=== PATIENT | male | born 1950 | race Caucasian/White ===

== ENCOUNTER → 2016-03-29 | Outpatient (CLI) | payer OTHER, MEDICARE ==
[~2016-03-29] VITALS: Ht 170.2 cm; Wt 96.2 kg
[~2016-03-29] MED LIST: AMIL5TAB15 PO; CHOL1000 PO; CHOL100010 PO; CLON0.252 PO; COLON HEALTH PO; DOXY-300 PO; DOXY100C76 PO; Enteral Nutrition Formula PO; FRS/40 PO; KETO0.5S33 OPR; LACT10SO30 PO; LCTL30 PO; LCTS240 PO; NUTRCAP11 PO; OMEP20CA9 PO; ONDA4TAB46 PO; POLYSOL50 OPR; PRAM1TAB47 PO; PRDFOPS OPR; PRLSR20 PO; RIFA550T2 PO; TRAM-10 PO; ULT50HP PO; ZFRODT4HP PO; ZINC1CAP PO; ZLF/50 PO
[2016-03-29 14:12] VITALS: BP 144/74; PULSE 79; Ht 170.2 cm; Wt 96.2 kg
== END | disposition home or self-care (01) ==
LOC: C.NEUR 12:54
PROVIDERS: ATTEND Internal Medicine Pulmonary Disease
DX: G47.10 Hypersomnia, unspecified (principal); K74.60 Unspecified cirrhosis of liver; B18.2 Chronic viral hepatitis C; F20.9 Schizophrenia, unspecified; G47.00 Insomnia, unspecified; G25.81 Restless legs syndrome

== ENCOUNTER → 2016-03-29 | Outpatient (CLI) | payer OTHER, MEDICARE ==
[2016-03-29 16:54] LABS: BASO % 0.4 %; BASO ABS # 0.03 K/uL (0-0.2); COMPLETE YES; EOS % 5.6 %; HEMATOCRIT 39.8 % (42-52); IG% 0.1 %; LYMPH % 23.7 %; LYMPH ABS # 1.75 K/uL (1.2-3.4); MEAN CELL VOLUME 98.8 fL (80-100); MEAN CORPUSCULAR HEMOGLOBIN 34.5 pg (25-34); MEAN CORPUSCULAR HGB CONC 34.9 g/dl (32-36); MEAN PLATELET VOLUME 11.2 fL (7.4-10.4); MONO % 7.6 %; NEUT % 62.6 %; PLATELET COUNT 117 K/uL (130-400); RED BLOOD COUNT 4.03 M/uL (4.7-6.1); WHITE BLOOD COUNT 7.37 K/uL (4.8-10.8)
[2016-03-29 17:22] LABS: ALT/SGPT 25 U/L (12-78); AST/SGOT 31 U/L (15-37); BLOOD UREA NITROGEN 22 mg/dl (7-18); BUN/CREATININE RATIO 22.2 (10-20); CALCIUM 8.7 mg/dl (8.5-10.1); CARBON DIOXIDE 25 mmol/L (21-32); CHLORIDE 109 mmol/L (98-107); GLUCOSE 107 mg/dl (70-99); POTASSIUM 3.8 mmol/L (3.5-5.1); SODIUM 142 mmol/L (136-145)
[2016-03-29 17:27] LABS: ALB/GLOB RATIO 0.9 (0.9-2); ALKALINE PHOSPHATASE 99 U/L (45-117); FERRITIN 48.9 ng/ml (8.0-388.0)
== END | disposition home or self-care (01) ==
LOC: C.LABBC 15:50
PROVIDERS: ATTEND Internal Medicine Pulmonary Disease
DX: G25.81 Restless legs syndrome (principal)

== ENCOUNTER → 2016-03-30 | Outpatient (CLI) | payer OTHER, MEDICARE | END | disposition home or self-care (01) | LOC: C.LAB 14:06 | PROVIDERS: ATTEND Internal Medicine Pulmonary Disease | DX: G25.81 Restless legs syndrome (principal) ==

== ENCOUNTER → 2016-04-06 | Day surgery (SDC) | payer OTHER, MEDICARE ==
[2016-04-01 11:48] VITALS: Ht 170.2 cm; Wt 95.5 kg
[~2016-04-06] VITALS: Ht 170.2 cm; Wt 95.5 kg
[~2016-04-06] MED LIST changes: -DOXY-300 PO; -KETO0.5S33 OPR; -LCTS240 PO; +LIDOCAINE HCL 2% 2 ML VIAL (20MG/ML) ONE; -POLYSOL50 OPR; -PRDFOPS OPR; +PROPOFOL IV EMULSION 10 MG/ML 20 ML VIAL IV ONE; +SODIUM CHLORIDE 0.9% 500ML 500 ML IV ONE; -ULT50HP PO; -ZFRODT4HP PO
[2016-04-06 12:58] VITALS: TEMP 36.8
--- NOTE | 2016-04-06 13:20 | Endo History and Physical ---
History & Physical Date of Service: Apr 06, 2016. Chief Complaint: hepatic cirrhosis Referring Physician: Dr. Ariel Estrada History of Present Illness cirrhosis, h/o varices Past Medical History Anxiety, Reflux, Liver Disease, Depression Past Surgical History Hx Cardiac Surgery: No Hx Internal Defibrillator: No Hx Pacemaker: No Hx Abdominal Surgery: Yes (HERNIA REPAIR) Hx of Implantable Prosthesis: No Hx Post-Op Nausea and Vomiting: No Hx Cancer Surgery: Yes (SKIN CANCER REMOVAL) Hx Thoracic Surgery: No Hx Orthopedic: No Hx Urinary Tract Surgery: No Family History None Social History Smoking Status: Former Smoker Hx Substance Use: Yes (QUIT 10+ YEARS) Hx Alcohol Use: Yes (QUIT 10+ YEARS) Allergies Coded Allergies: Zolpidem (Verified Adverse Reaction, Intermediate, passes out, 04/01/16) Current Medications Reported Home Medications Medications Dose Route/Sig Max Daily Dose Days Date Category Dose Instructions Zofran (Ondansetron HCl) 4 Mg Tab 4 Mg PO Q8H PRN 04/01/16 Reported Ultram (Tramadol HCl) 50 Mg Tab 50 Mg PO Q6H PRN 04/01/16 Reported [Colon Health] 1 Tab PO QAM 10/22/15 Reported Sertraline HCl 50 Mg Tab 50 Mg PO QAM 10/22/15 Reported Clonazepam Odt (Clonazepam) 0.25 Mg Tab 0.25 Mg PO HS 10/22/15 Reported Xifaxan (Rifaximin) 550 Mg Tab 550 Mg PO BID 10/22/15 Reported Lactulose (Lactulose (Encephalopathy)) 10 Gm/15 Ml Dori 1 Tbs PO BID 10/22/15 Reported Amiloride Hcl 5 Mg Tab 20 Mg PO BID 10/13/14 Reported take four 5mg tablets Lasix (Furosemide) 40 Mg Tab 120 Mg PO BID 10/13/14 Reported Mirapex (Pramipexole Dihydrochloride) 0.5 Mg Tab 1 Mg PO HS 01/28/14 Reported Vitamin D (Cholecalciferol) 1,000 Inter.unit Tab 1,000 Inter.unit PO QAM 10/22/12 Reported Prilosec (Omeprazole) 20 Mg Capcr 40 Mg PO QAM 06/20/12 Reported Prilosec (Omeprazole) 20 Mg Cap 20 Mg PO QPM 04/13/12 Reported takes late afternoon Vital Signs Weight (Kilograms): 95.45 Height (Feet): 5 Height (Inches): 7 Date Time Temp Pulse Resp B/P Pulse Ox O2 Delivery O2 Flow Rate FiO2 04/06/16 12:58 36.8 65 20 143/61 95 Room Air Physical Exam General Appearance: no apparent distress Respiratory/Chest: Respiratory effort: no dyspnea Auscultation: breath sounds normal Cardiovascular: Heart Auscultation: RRR Abdomen: Bowel Sounds: normal Assessment and Plan EGD
--- NOTE | 2016-04-06 13:31 | Discharge Instructions ---
Endoscopy Patient Instructions Date / Procedure(s) Performed Apr 06, 2016. EGD Allergy Information Coded Allergies: Zolpidem (Verified Adverse Reaction, Intermediate, passes out, 04/01/16) Discharge Date / Findings Apr 06, 2016. No esophageal or gastric varices. Portal gastropathy and GAVE Provider Instructions Activity Restrictions - No exercising or heavy lifting for 24 hours. - Do not drink alcohol the day of the procedure. - Do not drive a car or operate machinery until the day after the procedure. - Do not make any important decisions or sign important papers in 24 hours after the procedure. Following Day: - Return to full activity which may include returning to work/school. Diet Start your diet with liquids and light foods (jello, soup, juice, toast). Then eat your usual diet if not nauseated. Treatment For Common After Affects For mild abdominal pain, bloating, or excessive gas: - Rest - Eat lightly - Lie on right side Follow-Up Information Follow-up with Dr. Ariel Estrada as scheduled Anesthesia Information What You Should Know You have had a procedure that required some medicine to reduce anxiety and discomfort. This treatment is called moderate sedation. After receiving the treatment, you may be sleepy, but you will be able to breathe on your own. The effects of the treatment may last for several hours. Follow these instructions along with Activity/Diet recommendations noted above: * Do NOT do anything where dizziness or clumsiness would be dangerous. * Rest quietly at home today, then you can be up and about tomorrow. * Have a responsible person stay with you the rest of today. * You may have had an I.V. today. If so, you may take the dressing off later today. Recommendations Call your doctor if: * Trouble breathing * Continuous vomiting for more than 24 hours * Temperature above 101 degrees * Severe abdominal pain or bloating * Pain not relieved by pain medicine ordered * There is increased drainage or redness from any incision * A large amount of rectal bleeding greater than 2-3 tablespoons. (If you had a polyp/s removed or have hemorrhoids, a small amount of blood - from the rectum is to be expected.) * You have any unanswered questions or concerns. IN THE EVENT OF A SERIOUS EMERGENCY, GO TO THE NEAREST EMERGENCY ROOM Your discharge instructions were prepared by provider Edwardo Dela Cruz. Patient Instructions Signature Page Oskar Bridges Patient (or Guardian) Signature/Date: I have read and understand the instructions given to me by my caregivers. Caregiver/RN/Doctor Signature/Date: The above-named patient and/or guardian has received patient instructions on this date. + Original Patient Signature Page (only) stays with chart. Please make copy for patient.
--- NOTE | 2016-04-06 13:36 | GI REPORT ---
Procedure Date: 04/06/2016 1:12 PM Procedure: Upper GI endoscopy Indications: Cirrhosis rule out esophageal varices Medicines: See the Anesthesia note for documentation of the administered medications Complications: No immediate complications. Estimated Blood Loss: Estimated blood loss: none. Procedure: Pre-Anesthesia Assessment: - ASA Grade Assessment: III - A patient with severe systemic disease. After obtaining informed consent, the endoscope was passed under direct vision. Throughout the procedure, the patient's blood pressure, pulse, and oxygen saturations were monitored continuously. The scope was introduced through the mouth, and advanced to the second part of duodenum. The upper GI endoscopy was accomplished without difficulty. The patient tolerated the procedure well. Findings: There were no esophageal varices. Esophagus was normal. There were no gastric varices. There was marked snakeskin appearance in cardia and body of stomach, suggestive of portal gastropathy. There were stripes of petechiae in the antrum, suggestive of GAVE. The duodenum was normal. Recommendation: - Discharge patient to home. Edwardo Strong M.D. Edwardo Strong MD 04/06/2016 1:36:14 PM This report has been signed electronically. Note Initiated On: 04/06/2016 1:12 PM I attest to the content of the Intraoperative Record and orders documented therein, exceptions below
[2016-04-06 14:03] VITALS: BP 127/58; PULSE 61; O2SAT 96
--- NOTE | 2016-04-06 15:25 | Anesthesiology Progress Note ---
Anesthesia Post Op Note Date & Time Apr 06, 2016 at 15:26 Vital Signs Pain Intensity: 0 Vital Signs Past 12 Hours Date Time Temp Pulse Resp B/P Pulse Ox O2 Delivery O2 Flow Rate FiO2 04/06/16 14:03 61 20 127/58 96 Room Air 04/06/16 13:48 64 20 122/58 93 Room Air 04/06/16 13:33 62 20 114/57 97 Room Air 04/06/16 12:58 36.8 65 20 143/61 95 Room Air Notes Mental Status: alert / awake / arousable, participated in evaluation Pt Amnestic to Procedure: Yes Nausea / Vomiting: adequately controlled Pain: adequately controlled Airway Patency, RR, SpO2: stable & adequate BP & HR: stable & adequate Hydration State: stable & adequate Anesthetic Complications: no major complications apparent
== END | disposition home or self-care (01) ==
LOC: C.GI 11:54
PROVIDERS: ATTEND Internal Medicine Gastroenterology
DX: K74.69 Other cirrhosis of liver (principal); K21.9 Gastro-esophageal reflux disease without esophagitis; F41.9 Anxiety disorder, unspecified; F32.9 Major depressive disorder, single episode, unspecified; Z98.890 Other specified postprocedural states; Z87.891 Personal history of nicotine dependence

== ENCOUNTER → 2016-05-05 | Outpatient (CLI) | payer OTHER, MEDICARE ==
[~2016-05-05] MED LIST changes: -LIDOCAINE HCL 2% 2 ML VIAL (20MG/ML) ONE; -PROPOFOL IV EMULSION 10 MG/ML 20 ML VIAL IV ONE; -SODIUM CHLORIDE 0.9% 500ML 500 ML IV ONE
--- NOTE | 2016-05-06 04:10 | PAP/PSG TECHNICIAN REPORT ---
[facility] Food Technician Polysomnogram Report Study name: None Report date: 05/06/2016 Study date: 05/05/2016 Referring Physician: Garth Jaramillo M.D. Name: ANNA PIO Nikhil Interpreting Physician: Garth Jaramillo M.D. Date of : 1950 Food Technician: Rhiannon Cortes RPSGT. Sex: Male Age: 66 StudyType: PSG Weight: 212 lbs Height: 66 years, Height 5' 0" Neck Circum:15inches BMI: 41.4 Medications: Amoloride HCl 5mg, Clonazepam 0.25mg, Furosemide 40mg, Lactulose 10gm/15ml, Mirapex, Omeprazole 20mg, Tramadol HCl 50mg, Vit D, Xifaxan 550mg, Zofran 4mg, Zoloft 50mg Patient History Study started on room air with no ETCO2 monitoring in room #6. 66 yr old male here tonight for a diagnostic psg. He complains of hypersomnolence and abnormal sleep. He has RLS. He does not know if he snores. Neck circ=15inches. Parameters Monitored NPSG: E1-M2, E2-M1, Fp1-M2, Fp2-M1, F3-M2, F4-M2, F4-M1, C3-M2, C4-M2, C4-M1, O1-M2, O2-M2, O2-M1, T3-M2, T4-M1, P3-M2, P4-M1, CHIN1, CHIN2, HR, EKG, Legs, PFLOW, SNOR, FLOW, CFLOW, Tidal Volume, THOR, ABDO, SpO2, PLTH, CPRESS, ETCO2 Wave, ETCO2, pH Sleep Architecture Sleep Stages Time at Lights Off 9:28:23 PM STAGES Time (min.) TST (%) Time at Lights On 3:50:53 AM Wake 89.5 -- Total Recording Time (TRT) 382.50 min. N1 9.5 3 Total Sleep Period (TSP) 315.0 min. N2 178.5 61 Total Sleep Time (TST) 293.0min. N3 64.5 22 Awake Time 89.5 min. REM 40.5 14 Wake after Sleep Onset 86.5 min. Sleep Efficiency (SE) 77 % Sleep Onset Latency (BERTHA) 3.0 min. Number of Stage 1 Shifts None Awakenings 11 Stage Changes 50 Number of REM periods 2 REM 40.5 14 REM Latency 162.0 min. NREM 252.5 86 Body Position Analysis Supine Right Left Side Prone Vertical Total Sleep Time (min.) 117.7 192.0 0.0 192.00 0.0 0.0 Total Sleep Time (%) 34% 66% 0% 66 0% N/A% Total Sleep Time REM (min.) 0.0 40.5 0.0 None 0.0 0.0 Total Sleep Time NREM (min.) 101.0 151.5 0.0 None 0.0 0.0 Intermittent Wake (min.) 16.7 10.2 62.6 None 0.0 0.0 Total Sleep Period (%) 36% None None None None None Arousals Myoclonus (PLM) * Events Count Index Events Count Index Spontaneous 4 1 Events Awake (PLMW) 86 57.7 Respiratory 1 0.2 Events Asleep w/ Arousal (PLMA) 25 5.1 PLM 24 5 Events Asleep w/o Arousal (PLMS) 267 54.7 Snoring 2 0 Total Asleep 292 59.8 Total 31 6 Total 378 59 Respiratory Analysis * CA OA MA CH H RERA Total Count 0 0 0 0 2 0 2 Index 0.0 0.0 0.0 0 0.4 0 0.4 Mean Duration 0.0 0.0 0.0 0.00 13.5 0.0 13.5 Longest Duration 0.0 0.0 0.0 0.00 0.0 0.0 17.0 Respiratory Event Summary Total Supine ~Supine Right Left Prone REM NREM Apneas Count 0 0 0 0 N/A N/A 0 0 Index 0.0 0 0 0.0 N/A N/A 0 0 Hypopneas (4% Desat) Count 2 2 0 0 N/A N/A 0 2 Index 0.4 1.2 0 0.0 N/A N/A 0.0 0.5 Apneas & All Hypopneas Count 2 2 0 0 N/A N/A 0 2 Index 0.4 1 0 0 N/A N/A 0.0 0.5 Respiratory Events (Semiconductor Dies Loader+All Hyp+RERA) Count 2 2 0 0 N/A N/A 0 2 Index 0.4 1 0 0.0 N/A N/A 0.0 0.5 Respiratory Related Arousal Count 1 2 0 0 N/A N/A 0 1 Index 0.2 1 0 0 N/A N/A 0 0 Snoring Analysis Supine Right Left Prone REM NREM Total Snore duration 13.2 min Snores count 207 640 N/A N/A 148 699 847 Snore mean duration 0.9 Sec Snores index 123 200 N/A N/A 219.3 166.1 173.4 TST with snoring (%) 4.5% Desaturation Event Summary: Minimum %SpO2 Event Count Mean/Min/Max Duration(sec.) Desaturation Index % Time In Bed > 90 15 24.3 / 9.5 / 49.8 65.8 4.3 86 - 90 21 25.2 / 11.5 / 60.0 4.7 82.9 81 - 85 1 33.0 / 33.0 / 33.0 1.5 12.8 76 - 80 0 N/A 0.0 0.1 71 - 75 0 N/A 0.0 0.0 66 - 70 0 N/A 0.0 0.0 61 - 65 0 N/A 0.0 0.0 56 - 60 0 N/A 0.0 0.0 51 - 55 0 N/A 0.0 0.0 < 50 0 N/A 0.0 0.0 Total REM NREM Awake <50% 0.0 min. 0.0 min. 0.0 min. 0.0 min. 51 - 60% 0.0 min. 0.0 min. 0.0 min. 0.0 min. 61 - 70% 0.0 min. 0.0 min. 0.0 min. 0.0 min. 71 - 80% 0.2 min. 0.0 min. 0.2 min. 0.0 min. 81 - 90% 306.7 min. 40.4 min. 238.7 min. 27.5 min. 91 - 100% 13.7 min. 0.0 min. 5.8 min. 7.8 min. Average 87 87 87 89 Minimum SpO2 79 85 79 81 Desaturation Event Index 4.4 0.0 3.6 8.7 # Desat. Events below 89% 24 N/A 15 9 Time(%) with Saturation below 89% 76.4 10.3 61.9 4.2 Time(min.) with Saturation below 89% 244.9 32.9 198.4 13.6 Time (mins) REM (mins) NREM (mins) % of TST SpO2 Below 90% 15 N/A N15 94.8 SpO2 Below 88% 7 0 0 53 Heart Rate Analysis Min (bpm) Max (bpm) Average (bpm) Awake 50 107 67 NREM 33 281 59 REM 48 65 54 Overall 33 281 58 Supplemental O2 Values Minimum O2 level: None Value Start Time End Time Food Technician Comments Mr. Bridges slept in the right, left and supine positions. No cardiac arrhythmia noted. PLM's were noted. No bruxism noted. Snoring was noted and scored as a 3 on a scale of 1 through 5. (0=no snoring, 5=snoring loud enough to be heard through a closed door or down the childers way) He awoke to use the restroom once during the night. He stated that he slept about the same as usual. 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 Mr. Bridges awoke early and could not get back to sleep and asked to leave. He was having back pain. The final report will be interpreted and signed by a sleep physician. The completed physician report will then be placed in the patient medical record. Therapy (cm H2O) 0 TIB (min.) 382.5 TST (min.) 293.0 Sleep Onset (min.) 3.0 REM Onset From Sleep (min.) 162.0 Sleep Efficiency % 77 Wakefulness (%) 23 Wakefulness (min.) 89.5 NREM 1 (%) 3 NREM 1 (min.) 9.5 NREM 2 (%) 61 NREM 2 (min.) 178.5 NREM 3 (%) 22 NREM 3 (min.) 64.5 REM (%) 14 REM (min.) 40.5 # Arousals 31 Arousal Index 6 # Snore 847 Snore Index 173.4 AHI 0.4 AHI Supine 1 AHI Non-Supine 0 NREM AHI 0.5 REM AHI 0.0 RDI 0.4 # Obstructive Apnea 0 # Central Apnea 0 # Mixed Apnea 0 # Hypopneas 2 RERAs 0 Total Respiratory Events 9 Time Below SpO2 89% (min.) 231.3 Mean NREM SpO2 (%) 87 Mean REM SpO2 (%) 87 Mean Sleep SpO2 (%) 87 Min NREM SpO2 (%) 79 Min REM SpO2 (%) 85 Position Supine (min.) 117.7 Position Non-supine (min.) 192.0 LM Index Sleep 59.8 LM Index NREM 68.0 LM Index REM 8.9 Mean Heart Rate (bpm) 58 Min Heart Rate (bpm) 33
--- NOTE | 2016-05-09 07:12 | POLYSOMNOGRAPH REPORT ---
CLINICAL DATA: A 66-year-old male with BMI of 41.4, referred by Dr. Ariel Estrada for evaluation of hypersomnolence and abnormal sleep. He has restless leg syndrome symptoms in the evening. He does not know if he snores. SLEEP ARCHITECTURE: Total sleep period was 315 minutes. Total sleep time was 293 minutes, divided between 252.5 minutes of non-REM sleep and 40.5 minutes of REM sleep. Sleep onset latency was 3 minutes. REM latency was slightly delayed at 162 minutes. Sleep efficiency was 77%. Wake after sleep onset was 86.5 minutes. Sleep consisted of stage N1 3%, N2 61%, N3 22% and REM 14%. AROUSAL DATA: 31 arousals were recorded for an index of 6 per hour. PLM DATA: Severely elevated limb movements during sleep were noted. There were 292 limb movements during sleep noted for an index of 59.8 per hour with arousal index of 5.1 per hour. RESPIRATORY DATA: There was no evidence of clinically significant sleep apnea/hypopnea noted. The AHI was 0.4. There were 2 hypopneic episodes. The mean duration of hypopnea was 13.5 seconds. OXIMETRY DATA: Nocturnal hypoxemia was seen. Oxygen emanuel was 79% during non-REM sleep. Mean saturation was 87%. EKG: Heart rates ranged from 40-65 beats per minute. No arrhythmias were noted. SWEATBAND PERFORATOR'S COMMENTS: The patient slept in the right, left, and supine positions. Snoring was moderate, rated 3 on a scale of 1 through 5. He did awaken early and did not sleep because of back pain. IMPRESSION: 1. No evidence of clinically significant sleep apnea. 2. Nocturnal hypoxemia was seen. 3. Significant limb movements during sleep consistent with periodic limb movement disorder. RECOMMENDATIONS: The patient may benefit from use of nocturnal oxygen and treatment of PLMD. Clinical correlation is needed. [facility]
--- NOTE | 2016-05-13 12:04 | CODING QUERY MEDICAL NECESSITY ---
CQSUPPORTING DIAGNOSIS NEEDED A supporting diagnosis is required for the test/procedure performed on this patient in order for us to be reimbursed by the patient's insurance. Please provide a supporting diagnosis for the following test/procedure listed below next to the test name along with your signature. *If there is no additional diagnosis for this patient that would support the following test/procedure please document that below next to the test/procedure. Test(s)/Procedure(s) that require a supporting diagnosis: DOS 05/05/16 SLEEP STUDY IF NOTHING ELSE TO ADD PLEASE SAY THAT AND SIGN THANKS FOR YOUR PATIENCE Provider Signature: Date: Thank you Linnea Dumont Health Information Management Once completed, please kindly fax back to [phone] For questions please call [phone]
== END | disposition home or self-care (01) ==
LOC: C.NEUR 20:00
PROVIDERS: ATTEND Internal Medicine Pulmonary Disease
DX: G47.10 Hypersomnia, unspecified (principal); G25.81 Restless legs syndrome; F20.9 Schizophrenia, unspecified; B18.2 Chronic viral hepatitis C; G47.00 Insomnia, unspecified; G47.36 Sleep related hypoventilation in conditions classified elsewhere; R06.83 Snoring

== ENCOUNTER → 2016-05-17 | Outpatient (CLI) | payer OTHER, MEDICARE ==
[~2016-05-17] VITALS: Ht 170.2 cm; Wt 103.8 kg
[2016-05-17 14:05] VITALS: BP 148/73; PULSE 74; Ht 170.2 cm; Wt 103.8 kg
== END | disposition home or self-care (01) ==
LOC: C.NEUR 13:16
PROVIDERS: ATTEND Internal Medicine Pulmonary Disease
DX: G47.34 Idiopathic sleep related nonobstructive alveolar hypoventilation (principal); E72.20 Disorder of urea cycle metabolism, unspecified; K74.60 Unspecified cirrhosis of liver; I89.0 Lymphedema, not elsewhere classified

== ENCOUNTER 2016-06-04 03:20 | Emergency (ER) | payer OTHER, MEDICARE ==
[~2016-06-04] VITALS: Ht 170.2 cm; Wt 102.6 kg
[~2016-06-04 03:20] MED LIST changes: -CHOL1000 PO; -DOXY100C76 PO; -Enteral Nutrition Formula PO; -LCTL30 PO; -NUTRCAP11 PO; -ZINC1CAP PO
[2016-06-04 03:34] VITALS: TEMP 37.1; Ht 170.2 cm; Wt 102.6 kg
--- NOTE | 2016-06-04 04:32 | EMERGENCY ROOM VISIT NOTE ---
History Report prepared by Vonnie: Huang Le Under the Supervision of: Dr. Sherin Davis D.O. First contact with patient: 03:43 Chief Complaint: ARM PAIN Stated Complaint: ARM PAIN History of Present Illness The patient is a 66 year old male who presents to the Emergency Room with complaints of persistent left arm pain that started at approximately 0200. The arm pain is rated 9/10 in severity. He also notes swelling. The patient injuries his left elbow often. The patient has had lesions over his bilateral arms that he periodically gets frozen. He last had them frozen 2 months ago. The patient denies fevers, chills, nausea, or vomiting. The patient has a history of hepatitis C, arthritis, and lymphedema. Source of History: patient Onset: 0200 this morning Position: arm (left) Symptom Intensity: 9/10 Timing: other (persistent) Associated Symptoms: No chills, No fevers, No nausea, No vomiting Review of Systems See HPI for pertinent positives & negatives. A total of 10 systems reviewed and were otherwise negative. Past Medical & Surgical Medical Problems: (1) Anemia (2) Cellulitis (3) Chronic hepatitis C (4) Cirrhosis of liver (5) Esophageal varices (6) Hernia repair (7) History of - schizophrenia (8) Mtakl-Fowuzqkop-Uueyt pattern Family History Cancer Heart disease Hypertension Lung disease Seizures Social History Smoking Status: Never Smoker Alcohol Use: none Drug Use: none Marital Status: Housing Status: lives alone Occupation Status: disabled Current/Historical Medications Scheduled Amiloride Hcl (Amiloride Hcl), 20 MG PO BID Cholecalciferol (Vitamin D3), 1,000 UNIT PO DAILY Clonazepam (Clonazepam Odt), 0.25 MG PO HS Doxycycline Monohydrate (Monodox), 100 MG PO BID Furosemide (Lasix), 80 MG PO BID Lactulose (Encephalopathy) (Lactulose), 1 TBS PO BID Nutritional Supplements (Colon Formula), 1 CAP PO DAILY Omeprazole (Prilosec), 20 MG PO QPM Omeprazole (Prilosec), 40 MG PO QAM Pramipexole Dihydrochloride (Mirapex), 1 MG PO HS Rifaximin (Xifaxan), 550 MG PO BID Sertraline HCl (Sertraline HCl), 50 MG PO QAM Zinc Sulfate (Zinc Sulfate), 220 MG PO DAILY Scheduled PRN Ondansetron Hcl (Zofran), 4 MG PO Q8H PRN for Nausea Tramadol (Ultram), 50 MG PO Q6H PRN for Pain Allergies Coded Allergies: Zolpidem (Verified Adverse Reaction, Intermediate, passes out, 06/04/16) Physical Exam Vital Signs Date Time Temp Pulse Resp B/P Pulse Ox O2 Delivery O2 Flow Rate FiO2 06/04/16 05:35 87 18 126/47 95 Room Air 06/04/16 03:34 37.1 80 18 165/71 96 Room Air Physical Exam HEENT: Head - normocephalic and atraumatic Pupils are equal, round, and reactive to light. Extraocular eye muscles are intact, and sclera are anicteric. Nose - moist nasal mucosa without discharge. Mouth - moist buccal mucosa. Oropharynx is nonerythematous and there is no tonsillar exudate or edema noted. Neck: Supple; no JVD, nuchal rigidity, cervical lymphadenopathy. Heart: Regular rate and rhythm. There is a normal S1 and S2 with no murmurs, clicks, or gallops appreciated. Lungs: Clear to auscultation bilaterally with no wheezes, rales, or rhonchi. Abdomen: Soft, completely nontender, nondistended, with good bowel sounds. There are no palpable pulsatile masses or hepatosplenomegaly. There is no guarding, rigidity, or rebound noted. Extremities: Left elbow has two scabbed-over areas with surrounding erythema, extension of erythema and warmth over the dorsal aspect of the forearm consistent with cellulitis. Moderate edema of the bilateral lower extremities which he says is baseline. There are easily palpable peripheral pulses. Skin: warm and dry with good turgor and no rashes. Medical Decision & Procedures Laboratory Results 06/04/16 04:40 Red Blood Count 3.69, Mean Corpuscular Volume 96.7, Mean Corpuscular Hemoglobin 33.9, Mean Corpuscular Hemoglobin Concent 35.0, Mean Platelet Volume 10.6, Neutrophils (%) (Auto) 64.1, Lymphocytes (%) (Auto) 18.8, Monocytes (%) (Auto) 10.9, Eosinophils (%) (Auto) 5.4, Basophils (%) (Auto) 0.4, Neutrophils # (Auto ) 4.54, Lymphocytes # (Auto) 1.33, Monocytes # (Auto) 0.77, Eosinophils # (Auto ) 0.38, Basophils # (Auto) 0.03 Test 06/04/16 04:40 White Blood Count 7.08 K/uL (4.8-10.8) Red Blood Count 3.69 M/uL (4.7-6.1) Hemoglobin 12.5 g/dL (14.0-18.0) Hematocrit 35.7 % (42-52) Mean Corpuscular Volume 96.7 fL (80-100) Mean Corpuscular Hemoglobin 33.9 pg (25-34) Mean Corpuscular Hemoglobin Concent 35.0 g/dl (32-36) Platelet Count 106 K/uL (130-400) Mean Platelet Volume 10.6 fL (7.4-10.4) Neutrophils (%) (Auto) 64.1 % Lymphocytes (%) (Auto) 18.8 % Monocytes (%) (Auto) 10.9 % Eosinophils (%) (Auto) 5.4 % Basophils (%) (Auto) 0.4 % Neutrophils # (Auto) 4.54 K/uL (1.4-6.5) Lymphocytes # (Auto) 1.33 K/uL (1.2-3.4) Monocytes # (Auto) 0.77 K/uL (0.11-0.59) Eosinophils # (Auto) 0.38 K/uL (0-0.5) Basophils # (Auto) 0.03 K/uL (0-0.2) RDW Standard Deviation 54.8 fL (36.4-46.3) RDW Coefficient of Variation 15.5 % (11.5-14.5) Immature Granulocyte % (Auto) 0.4 % Immature Granulocyte # (Auto) 0.03 K/uL (0.00-0.02) Laboratory results per my review. Medications Administered Medications (Trade) Dose Ordered Sig/Arline Route Start Time Stop Time Status Last Admin Dose Admin Lorazepam (Ativan Inj) 1 mg NOW STAT IV 06/04/16 04:59 06/04/16 05:00 DC 06/04/16 05:11 1 MG Doxycycline Hyclate (Vibramycin Cap) 100 mg ONE ONCE PO 06/04/16 05:45 06/04/16 05:46 DC 06/04/16 05:46 100 MG Procedure Medications administered include Ativan IV and Vibramycin PO. ED Course 0340: Patient was evaluated by the resident, Dr. Trip Guerrero. 0425: Past medical records reviewed. The patient was evaluated in room A3. A complete history and physical exam was performed. An IV lock was initiated and labs are drones above. 0455: The patient is feeling anxious. 0459: Ativan 1 mg IV. 0540: The patient was discharged by Dr. Guerrero. 0545: Vibramycin 100 mg PO. Medical Decision The patient is a 66 year old male who presents to the ED with left arm pain. Differential diagnosis includes wound infection, cellulitis, bursitis. Laboratory interpretation: normal white count, hemoglobin 12.5, platelet count 106. The patient presents to the emergency room with left arm discomfort and redness to the elbow. Because of the expanding erythema, his symptoms seemed consistent with an acute cellulitis. The patient has had previous episodes of cellulitis and was successfully treated with doxycycline. We will try that again. Impression Primary Impression: Cellulitis of left forearm Scribe Attestation The scribe's documentation has been prepared under my direction and personally reviewed by me in its entirety. I confirm that the note above accurately reflects all work, treatment, procedures, and medical decision making performed by me. Departure Information Dispostion Home / Self-Care Prescriptions Doxycycline Monohydrate (Monodox) 100 Mg Cap 100 MG PO BID for 14 Days, #28 CAP Prov: Trip Guerrero .MD 06/04/16 Referrals Ariel Estrada M.D. (PCP) Forms HOME CARE DOCUMENTATION FORM, IMPORTANT VISIT INFORMATION Patient Instructions Cellulitis - [facility], [facility]
[2016-06-04] MEDS ORDERED: CHOL1000 PO (04:37)
[2016-06-04] MEDS ORDERED: ZINC1CAP PO (04:38)
[2016-06-04] MEDS ORDERED: NUTRCAP11 PO (04:38)
[2016-06-04 04:54] LABS: BASO % 0.4 %; BASO ABS # 0.03 K/uL (0-0.2); COMPLETE YES; EOS % 5.4 %; HEMATOCRIT 35.7 % (42-52); IG% 0.4 %; LYMPH % 18.8 %; LYMPH ABS # 1.33 K/uL (1.2-3.4); MEAN CELL VOLUME 96.7 fL (80-100); MEAN CORPUSCULAR HEMOGLOBIN 33.9 pg (25-34); MEAN PLATELET VOLUME 10.6 fL (7.4-10.4); MONO % 10.9 %; NEUT % 64.1 %; PLATELET COUNT 106 K/uL (130-400); RED BLOOD COUNT 3.69 M/uL (4.7-6.1); WHITE BLOOD COUNT 7.08 K/uL (4.8-10.8)
[2016-06-04] MEDS ORDERED: LORAZEPAM 2 MG/ML 1 ML VIAL IV STA (04:59)
[2016-06-04 05:35] VITALS: BP 126/47; PULSE 87; O2SAT 95
[2016-06-04] MEDS ORDERED: DOXY100C76 PO (05:43)
[2016-06-04] MEDS ORDERED: DOXYCYCLINE HYCLATE 100 MG CAP PO ONE (05:45)
--- NOTE | 2016-06-04 08:15 | EMERGENCY ROOM VISIT NOTE ---
History First contact with patient: 03:40 Chief Complaint: ARM PAIN Stated Complaint: ARM PAIN History of Present Illness The patient is a 66 year old male who presents to the Emergency Room with complaints of pain, swelling distal to the Left elbow. Patient has his of keratosis involving cass hands and arms and is given freezing treatment monthly. Additionally patient reports repeated injury to Left elbow on the arms of his chair at home which has broken the skin in the past. Patient reports acute swelling distal to the left elbow for several hrs prior to arrival. Pain was described as burning sensation. Patient has been treated in ED before for LE cellulitis with Doxycycline. He denies numbness, weakness, or tingling. Pt denies headache, fevers, chest pain, shortness of breath, nausea, vomiting, diarrhea, pain with urination, and melena. Review of Systems See HPI for pertinent positives & negatives. A total of 10 systems reviewed and were otherwise negative. Past Medical/Surgical History Medical Problems: (1) Anemia (2) Cellulitis (3) Chronic hepatitis C (4) Cirrhosis of liver (5) Esophageal varices (6) Hernia repair (7) History of - schizophrenia (8) Rsfnn-Tuwayoyfw-Cwwze pattern Family History Cancer Heart disease Hypertension Lung disease Seizures Social History Smoking Status: Never Smoker Alcohol Use: none Drug Use: none Marital Status: Housing Status: lives alone Occupation Status: disabled Current/Historical Medications Scheduled Amiloride Hcl (Amiloride Hcl), 20 MG PO BID Cholecalciferol (Vitamin D3), 1,000 UNIT PO DAILY Clonazepam (Clonazepam Odt), 0.25 MG PO HS Doxycycline Monohydrate (Monodox), 100 MG PO BID Furosemide (Lasix), 80 MG PO BID Lactulose (Encephalopathy) (Lactulose), 1 TBS PO BID Nutritional Supplements (Colon Formula), 1 CAP PO DAILY Omeprazole (Prilosec), 20 MG PO QPM Omeprazole (Prilosec), 40 MG PO QAM Pramipexole Dihydrochloride (Mirapex), 1 MG PO HS Rifaximin (Xifaxan), 550 MG PO BID Sertraline HCl (Sertraline HCl), 50 MG PO QAM Zinc Sulfate (Zinc Sulfate), 220 MG PO DAILY Scheduled PRN Ondansetron Hcl (Zofran), 4 MG PO Q8H PRN for Nausea Tramadol (Ultram), 50 MG PO Q6H PRN for Pain Allergies Coded Allergies: Zolpidem (Verified Adverse Reaction, Intermediate, passes out, 06/04/16) Physical Exam Vital Signs Date Time Temp Pulse Resp B/P Pulse Ox O2 Delivery O2 Flow Rate FiO2 06/04/16 05:35 87 18 126/47 95 Room Air 06/04/16 03:34 37.1 80 18 165/71 96 Room Air Physical Exam GENERAL: alert, well appearing, well nourished, no distress, non-toxic EYE EXAM: normal conjunctiva, PERRL and EOM's grossly intact NECK: supple, no nuchal rigidity, no adenopathy, non-tender LUNGS: Clear to auscultation. Normal chest wall mechanics HEART: no murmurs, S1 normal and S2 normal ABDOMEN: abdomen soft, non-tender, normo-active bowel sounds, no masses, no rebound or guarding. SKIN: no rashes and no bruising UPPER EXTREMITIES: Proximal forearm, area of demarcated erythema, swelling, warm to touch, Cass hands/forearms, firm nodular lesion with surrounding mild erythema, LOWER EXTREMITIES: No pitting edema. NEURO EXAM: Normal sensorium, cranial nerves II-XII grossly intact, normal speech, no gross weakness of arms, no gross weakness of legs. Medical Decision & Procedures Laboratory Results 06/04/16 04:40 Red Blood Count 3.69, Mean Corpuscular Volume 96.7, Mean Corpuscular Hemoglobin 33.9, Mean Corpuscular Hemoglobin Concent 35.0, Mean Platelet Volume 10.6, Neutrophils (%) (Auto) 64.1, Lymphocytes (%) (Auto) 18.8, Monocytes (%) (Auto) 10.9, Eosinophils (%) (Auto) 5.4, Basophils (%) (Auto) 0.4, Neutrophils # (Auto ) 4.54, Lymphocytes # (Auto) 1.33, Monocytes # (Auto) 0.77, Eosinophils # (Auto ) 0.38, Basophils # (Auto) 0.03 Test 06/04/16 04:40 White Blood Count 7.08 K/uL (4.8-10.8) Red Blood Count 3.69 M/uL (4.7-6.1) Hemoglobin 12.5 g/dL (14.0-18.0) Hematocrit 35.7 % (42-52) Mean Corpuscular Volume 96.7 fL (80-100) Mean Corpuscular Hemoglobin 33.9 pg (25-34) Mean Corpuscular Hemoglobin Concent 35.0 g/dl (32-36) Platelet Count 106 K/uL (130-400) Mean Platelet Volume 10.6 fL (7.4-10.4) Neutrophils (%) (Auto) 64.1 % Lymphocytes (%) (Auto) 18.8 % Monocytes (%) (Auto) 10.9 % Eosinophils (%) (Auto) 5.4 % Basophils (%) (Auto) 0.4 % Neutrophils # (Auto) 4.54 K/uL (1.4-6.5) Lymphocytes # (Auto) 1.33 K/uL (1.2-3.4) Monocytes # (Auto) 0.77 K/uL (0.11-0.59) Eosinophils # (Auto) 0.38 K/uL (0-0.5) Basophils # (Auto) 0.03 K/uL (0-0.2) RDW Standard Deviation 54.8 fL (36.4-46.3) RDW Coefficient of Variation 15.5 % (11.5-14.5) Immature Granulocyte % (Auto) 0.4 % Immature Granulocyte # (Auto) 0.03 K/uL (0.00-0.02) Medications Administered Medications (Trade) Dose Ordered Sig/Arline Route Start Time Stop Time Status Last Admin Dose Admin Lorazepam (Ativan Inj) 1 mg NOW STAT IV 06/04/16 04:59 06/04/16 05:00 DC 06/04/16 05:11 1 MG Doxycycline Hyclate (Vibramycin Cap) 100 mg ONE ONCE PO 06/04/16 05:45 06/04/16 05:46 DC 06/04/16 05:46 100 MG Medical Decision Differential diagnosis includes etiologies such as cellulitis, abscess, MRSA infection, DVT, necrotizing fasciitis, dermatitis, drug eruption, as well as others were entertained. 66 yo M p/w Left UE pain erythema, swelling distal to olecranon. consistent with cellulitis. Source of infection likely through previous keratosis lesion vs. injury Rt arm Cellulitis -Given dose of Doxycycline 100 mg PO -Sent home on Doxycycline 100 mg PO BID x 14 d Upon reevaluation, the patient is comfortable. I discussed the findings and the treatment plan with the patient. He verbalizes agreement and understanding. He was discharged home with followup to PCP. Impression Primary Impression: Cellulitis of left forearm Departure Information Prescriptions Doxycycline Monohydrate (Monodox) 100 Mg Cap 100 MG PO BID for 14 Days, #28 CAP Prov: Trip Guerrero MD 06/04/16 Referrals Ariel Estrada M.D. (PCP) Patient Instructions My [facility] Resident Tracking Resident Involvement: Resident Care Provided Care Provided: Adult ED
[2016-06-08] MEDS ORDERED: Enteral Nutrition Formula PO (15:39)
[2016-06-08] MEDS ORDERED: LCTL30 PO (15:39)
[2016-06-08] MEDS ORDERED: FRS/40 PO (15:39)
[2016-06-08] MEDS ORDERED: DOXY100C76 PO (15:39)
[2016-06-08] MEDS ORDERED: CLON0.252 PO (15:53)
== END 2016-06-04 05:50 | disposition home or self-care (01) ==
LOC: C.EDB 03:21 → C.EDA 05:50
DX: L03.114 Cellulitis of left upper limb (principal); B19.20 Unspecified viral hepatitis C without hepatic coma; D64.9 Anemia, unspecified; K74.60 Unspecified cirrhosis of liver; I85.00 Esophageal varices without bleeding; F20.9 Schizophrenia, unspecified; I45.6 Pre-excitation syndrome; Z86.19 Personal history of other infectious and parasitic diseases; Z79.899 Other long term (current) drug therapy; Z88.8 Allergy status to other drugs, medicaments and biological substances; Z80.9 Family history of malignant neoplasm, unspecified; Z82.49 Family history of ischemic heart disease and other diseases of the circulatory system; Z82.0 Family history of epilepsy and other diseases of the nervous system

== ENCOUNTER 2016-06-04 15:27 | Inpatient (IN) | payer OTHER, MEDICARE ==
[~2016-06-04] VITALS: Ht 170.2 cm; Wt 98.8 kg
[~2016-06-04 15:27] MED LIST changes: +CHOL1000 PO; +DOXY100C76 PO; +NUTRCAP11 PO; +ZINC1CAP PO
[2016-06-04 17:04] LABS: INR 1.1 (0.9-1.1); PROTHROMBIN TIME (PATIENT) 11.5 SECONDS (9.0-12.0)
--- NOTE | 2016-06-04 17:11 | EMERGENCY ROOM VISIT NOTE ---
History First contact with patient: 15:37 Chief Complaint: SHORTNESS OF BREATH Stated Complaint: SOB Nursing Triage Summary: Pt arrives to ER via BLS with c/o shortness of breath following multiple falls after DC from ER this AM. Pt reports no LOC and that he has "poor balance." Pt also c/o R rib pain upon palpation. Pts lungs have expiratory wheezes on R side , diminished in the L. History of Present Illness The patient is a 66 year old male who presents to the Emergency Department via EMS for evaluation of pain to the RIGHT-sided ribs. He reports that he was seen in this facility earlier this morning for a cellulitis to the LEFT elbow. He was placed on doxycycline which she has had for cellulitis in the past which has worked well. He also received a dose of IV Ativan for anxiety. He was taken home by his sister. Upon returning home, he reports that he attempted to use the restroom. He reports that he lost his balance which is not usual for him, causing him to fall against the toilet. After giving himself from the ground, he reports that he fell a second time and struck his RIGHT sided ribs on the tub. He reportedly laid on the ground for approximately 6 hours as he reports that he was in too much pain to move. His sister did eventually contact him and then contacted EMS. He complains of pain to the RIGHT-sided ribs. He denies any prefall headaches, dizziness, lightheadedness, chest pain, palpitations, or shortness of breath. He reports that balance issues is "typical" for him. The patient rates his current discomfort as an 8/10. He denies any headaches, dizziness, lightheadedness, slurred speech, facial droop, unilateral weakness/numbness, LEFT sided chest pain, palpitations, shortness of breath, nausea, vomiting, abdominal pain, back pain, or extremity pain. Review of Systems A complete 10-point Review of Systems was discussed with the patient, with pertinent positives and negatives listed in the History of Present Illness. All remaining Review of Systems questions can be considered negative unless otherwise specified. Past Medical/Surgical History Medical Problems: (1) Anemia (2) Cellulitis (3) Chronic hepatitis C (4) Cirrhosis of liver (5) ENCEPHALOPATHY, UNSPECIFIED (6) Esophageal varices (7) Hernia repair (8) History of - schizophrenia (9) Gunuf-Jvhwvzmbt-Jxitq pattern Family History Cancer Heart disease Hypertension Lung disease Seizures Social History Smoking Status: Former Smoker Alcohol Use: none Drug Use: none Marital Status: Housing Status: lives alone Occupation Status: disabled Current/Historical Medications Scheduled Amiloride Hcl (Amiloride Hcl), 20 MG PO BID Cholecalciferol (Vitamin D3), 1,000 UNIT PO DAILY Clonazepam (Clonazepam Odt), 0.25 MG PO HS Doxycycline Monohydrate (Monodox), 100 MG PO BID Furosemide (Lasix), 80 MG PO BID Lactulose (Encephalopathy) (Lactulose), 1 TBS PO BID Nutritional Supplements (Colon Formula), 1 CAP PO DAILY Omeprazole (Prilosec), 20 MG PO QPM Omeprazole (Prilosec), 40 MG PO QAM Pramipexole Dihydrochloride (Mirapex), 1 MG PO HS Rifaximin (Xifaxan), 550 MG PO BID Sertraline HCl (Sertraline HCl), 50 MG PO QAM Zinc Sulfate (Zinc Sulfate), 220 MG PO DAILY Scheduled PRN Ondansetron Hcl (Zofran), 4 MG PO Q8H PRN for Nausea Tramadol (Ultram), 50 MG PO Q6H PRN for Pain Allergies Coded Allergies: Zolpidem (Verified Adverse Reaction, Intermediate, passes out, 06/04/16) Physical Exam Vital Signs Date Time Temp Pulse Resp B/P Pulse Ox O2 Delivery O2 Flow Rate FiO2 06/04/16 18:30 68 18 136/60 91 Room Air 06/04/16 17:40 69 17 155/74 94 Room Air 06/04/16 17:32 71 134/57 77 142/62 78 153/83 81 06/04/16 16:11 78 06/04/16 15:40 36.9 73 23 147/69 95 Room Air 06/04/16 15:40 95 Nasal Cannula 06/04/16 15:40 95 Room Air Pain Rating (0-10): 8 Physical Exam VITAL SIGNS - Vital signs and nursing notes were reviewed. GENERAL - 66-year-old male appearing his stated age who is in no acute distress. Communicates well with provider and answers questions appropriately. HEAD - Normocephalic, Atraumatic. No Valverde's Sign or Raccoon's Eyes. No depressed skull fractures palpable. EYES - PERRL with EOMI bilaterally. Sclera anicteric. Palpebral conjunctiva pink and moist with no injection noted. EARS - No deformities of external structures noted on gross examination bilaterally. No pain elicited with palpation of the tragus bilaterally. External auditory canals without discharge or otorrhea. Tympanic membranes pearly farmer without retraction or bulging. No fluid or purulent material visualized behind the TM. Handle of malleus, umbo, cone of light, pars tensa/ flaccid all easily visualized. NOSE - Midline and without cyanosis. No epistaxis or purulent drainage noted. Septum midline without deviation or septal hematoma noted. MOUTH/OROPHARYNX - Without perioral cyanosis. Buccal mucosa pink and moist and without leukoplakia. Tongue midline with equal elevation of palate bilaterally. No tonsillar hypertrophy, erythema, or exudates noted. NECK - Neck with FROM. Supple to palpation. No lymphadenopathy noted. No nuchal rigidity. LUNGS - Chest wall symmetric without accessory muscle use, intercostals retractions, or central cyanosis. Normal vesicular breath sounds CTA B/L. No wheezes, rales, or rhonchi appreciated. Moderate TTP to the RIGHT sided axillary ribs. CARDIAC - RRR with S1/S2. No murmur, rubs, or gallops appreciated. ABDOMEN - Abdominal contour obese without pulsations or visible masses. BS normoactive all four quadrants. No tenderness, palpable masses, hepatosplenomegaly, or ascites noted. EXTREMITIES - Moderate lymphedema to to bilateral lower extremities. +3/5 radial and dorsalis pedis pulses palpated throughout. +5/5 strength noted in UE/ LE bilaterally. NEUROLOGIC - Cranial nerves II through XII grossly intact. Sensory intact to light touch throughout. Patient able to perform rapid alternating movements appropriately. PSYCH - A&Ox3 and cooperates fully with examiner. Pt is very pleasant and interacts well with examiner. Medical Decision & Procedures ER Provider Diagnostic Interpretation: Radiological imaging and reports were reviewed by myself. Radiologist's Interpretation as follows: RIGHT RIBS UNILATERAL WITH PA CHEST CLINICAL HISTORY: Right rib pain status post trauma COMPARISON STUDY: Chest x-ray dated 10/22/2015 FINDINGS: The cardiac and mediastinal contours remain stable. The heart is mildly enlarged. There is persistent interstitial thickening which is perhaps slightly progressive. There is no pneumothorax. There are fractures of the right 10th and 11th ribs. IMPRESSION: 1. Right 10th and 11th rib fractures. No evidence of pneumothorax. 2. Basilar interstitial thickening, slightly progressive when compared the prior [address] HEAD WITHOUT CONTRAST (CT) CLINICAL HISTORY: Head trauma. Multiple falls. COMPARISON STUDY: 08/17/2014 TECHNIQUE: Axial CT of the brain is performed from the vertex to the skull base. IV contrast was not administered for this examination. CT DOSE: 945.97 mGy.cm FINDINGS: No intra or extra-axial mass lesions are visualized. There is no CT evidence of acute cortical infarction. There is no evidence of midline shift. There is no acute hemorrhage. No calvarial fractures are visualized. There are minimal white matter hypodensities likely on a small vessel basis. There is no evidence of pathologic ventricular dilatation. There is no evidence of acute sinusitis. There are postsurgical changes involving both maxilla, as well as the nasal bridge and frontal bone. IMPRESSION: No acute intracranial findings Laboratory Results 06/04/16 17:03 Red Blood Count 3.64, Mean Corpuscular Volume 97.5, Mean Corpuscular Hemoglobin 33.5, Mean Corpuscular Hemoglobin Concent 34.4, Mean Platelet Volume 10.3, Neutrophils (%) (Auto) 73.5, Lymphocytes (%) (Auto) 14.5, Monocytes (%) (Auto) 9.2, Eosinophils (%) (Auto) 2.3, Basophils (%) (Auto) 0.4, Neutrophils # (Auto) 5.66, Lymphocytes # (Auto) 1.12, Monocytes # (Auto) 0.71, Eosinophils # (Auto) 0.18, Basophils # (Auto) 0.03 06/04/16 16:37 Test 06/04/16 16:37 06/04/16 17:03 06/04/16 17:09 06/04/16 17:40 Prothrombin Time 11.5 SECONDS (9.0-12.0) Prothromb Time International Ratio 1.1 (0.9-1.1) Activated Partial Thromboplast Time 24.8 SECONDS (21.0-31.0) Partial Thromboplastin Ratio 1.0 Anion Gap 7.0 mmol/L (3-11) Est Creatinine Clear Calc Drug Dose 97.6 ml/min Estimated GFR () 106.2 Estimated GFR (Non- 91.6 BUN/Creatinine Ratio 20.5 (10-20) Calcium Level 8.4 mg/dl (8.5-10.1) Magnesium Level 2.5 mg/dl (1.8-2.4) Total Bilirubin 3.5 mg/dl (0.2-1) Aspartate Amino Transf (AST/SGOT) 38 U/L (15-37) Alanine Aminotransferase (ALT/SGPT) 18 U/L (12-78) Alkaline Phosphatase 105 U/L (45-117) Ammonia 66.0 umol/L (11-32) Total Creatine Kinase 221 U/L (39-308) Creatine Kinase MB 6.6 ng/ml (0.5-3.6) Creatine Kinase MB Ratio 3.0 (0-3.0) Troponin I 0.074 ng/ml (0-0.045) Total Protein 6.5 gm/dl (6.4-8.2) Albumin 2.8 gm/dl (3.4-5.0) Globulin 3.7 gm/dl (2.5-4.0) Albumin/Globulin Ratio 0.8 (0.9-2) Lipase 170 U/L (73-393) White Blood Count 7.71 K/uL (4.8-10.8) Red Blood Count 3.64 M/uL (4.7-6.1) Hemoglobin 12.2 g/dL (14.0-18.0) Hematocrit 35.5 % (42-52) Mean Corpuscular Volume 97.5 fL (80-100) Mean Corpuscular Hemoglobin 33.5 pg (25-34) Mean Corpuscular Hemoglobin Concent 34.4 g/dl (32-36) Platelet Count 96 K/uL (130-400) Mean Platelet Volume 10.3 fL (7.4-10.4) Neutrophils (%) (Auto) 73.5 % Lymphocytes (%) (Auto) 14.5 % Monocytes (%) (Auto) 9.2 % Eosinophils (%) (Auto) 2.3 % Basophils (%) (Auto) 0.4 % Neutrophils # (Auto) 5.66 K/uL (1.4-6.5) Lymphocytes # (Auto) 1.12 K/uL (1.2-3.4) Monocytes # (Auto) 0.71 K/uL (0.11-0.59) Eosinophils # (Auto) 0.18 K/uL (0-0.5) Basophils # (Auto) 0.03 K/uL (0-0.2) RDW Standard Deviation 55.0 fL (36.4-46.3) RDW Coefficient of Variation 15.5 % (11.5-14.5) Immature Granulocyte % (Auto) 0.1 % Immature Granulocyte # (Auto) 0.01 K/uL (0.00-0.02) Platelet Estimate DECREASED Red Blood Cell Morphology Unremarkable Bedside Troponin I 0.030 ng/ml (0-0.045) Urine Color YELLOW Urine Appearance CLEAR (CLEAR) Urine pH 7.0 (4.5-7.5) Urine Specific [place] 1.013 (1.000-1.030) Urine Protein NEG (NEG) Urine Glucose (UA) NEG (NEG) Urine Ketones NEG (NEG) Urine Occult Blood TRACE (NEG) Urine Nitrite NEG (NEG) Urine Bilirubin NEG (NEG) Urine Urobilinogen NEG (NEG) Urine Leukocyte Esterase NEG (NEG) Urine WBC (Auto) 1-5 /hpf (0-5) Urine RBC (Auto) 5-10 /hpf (0-4) Urine Hyaline Casts (Auto) 1-5 /lpf (0-5) Urine Epithelial Cells (Auto) 0-5 /lpf (0-5) Urine Bacteria (Auto) NEG (NEG) Urine Opiates Screen NEG (NEG) Urine Methadone, Qualitative NEG (NEG) Urine Barbiturates NEG (NEG) Urine Phencyclidine (PCP) Level NEG (NEG) Ur Amphetamine/Methamphetamine NEG (NEG) MDMA (Ecstasy) Screen NEG (NEG) Urine Benzodiazepines Screen NEG (NEG) Urine Cocaine Metabolite NEG (NEG) Urine Marijuana (THC) NEG (NEG) Procedure Patient was placed on the monitoring specialist and monitored throughout the entire extent of their stay. In addition, the patient's pulse oximetry was monitored throughout the entire stay. Any abnormalities or aberrancies were addressed appropriately. ECG Indication: weakness Rate (beats per minute): 72 Rhythm: normal sinus Findings: no acute ischemic change, no ectopy Change: no significant change (from 10/22/2015.) ED Course Patient was seen and evaluated by myself. Previous emergency department visit note was reviewed. Labs were drawn, saline lock in place. EKG and rib x-rays were obtained. CT the head was ordered. Laboratory results demonstrate no acute leukocytosis. The patient has a mild anemia. There are no significant electrolyte abnormalities. Ammonia is elevated at 66. Troponin was also found to be elevated at 0.074. His EKG is unchanged. X-ray demonstrated to acute rib fractures. CT the head is unremarkable. Case was reviewed with my attending physician who agrees the diagnostic approach and treatment plan. Laboratory results and imaging studies were reviewed with the patient who acknowledges understanding. Case was discussed with the [facility] hospitalist who agrees to the patient for further evaluation and management. Patient admitted in stable condition. Medical Decision Given the patient's presentation and stated complaints, I did elect to perform the above-mentioned workup. The patient presents today after sustaining to falls. He had following his bathroom. He was no loss of consciousness during each of these episodes. He reportedly laid on the floor for approximately 6 hours. My concern is for worsening encephalopathy secondary the patient's chronic cirrhosis and liver disease. His ammonia was mildly elevated at 66. His mental status is appropriate otherwise. Neurological exam is otherwise unremarkable. Interestingly, his troponin was found to be elevated. His EKG is unchanged from priors. His CPK is not elevated despite the complaints of light, floor for extend appear to time. Regardless, patient has sustained 2 separate falls. Patient will be admitted to the hospitalist program for further evaluation and management. Patient admitted in stable condition. In the evaluation and treatment of this patient, the following differential diagnoses were considered: IL, ASC, Dysrhythmia, Angina, Mediastinitis, GERD, Esophagitis, PE, Pneumonia, Bronchitis, Costochondritis, Rib Fracture, Zoster. Impression Primary Impression: Falls Additional Impressions: Rib fractures Elevated troponin I level Departure Information Dispostion Admitted as an inpatient Condition FAIR Referrals Ariel Estrada M.D. (PCP) Patient Instructions My [facility] Problem Qualifiers Primary Impression: Falls Encounter type: initial encounter Qualified Codes: W19.XXXA - Unspecified fall, initial encounter Additional Impressions: Rib fractures Encounter type: initial encounter Fracture type: closed Laterality: right
[2016-06-04 17:14] LABS: HEMATOCRIT 35.5 % (42-52); MEAN CELL VOLUME 97.5 fL (80-100); MEAN CORPUSCULAR HEMOGLOBIN 33.5 pg (25-34); MEAN CORPUSCULAR HGB CONC 34.4 g/dl (32-36); RED BLOOD COUNT 3.64 M/uL (4.7-6.1); WHITE BLOOD COUNT 7.71 K/uL (4.8-10.8)
[2016-06-04 17:18] LABS: ALB/GLOB RATIO 0.8 (0.9-2); BUN/CREATININE RATIO 20.5 (10-20); CALCIUM 8.4 mg/dl (8.5-10.1); CREATININE 0.86 mg/dl (0.60-1.40); MAGNESIUM 2.5 mg/dl (1.8-2.4); POTASSIUM 4.2 mmol/L (3.5-5.1)
--- NOTE | 2016-06-04 17:31 | DIAGNOSTIC IMAGING REPORT ---
CT HEAD WITHOUT CONTRAST (CT) CLINICAL HISTORY: Head trauma. Multiple falls. COMPARISON STUDY: 08/17/2014 TECHNIQUE: Axial CT of the brain is performed from the vertex to the skull base. IV contrast was not administered for this examination. CT DOSE: 945.97 mGy.cm FINDINGS: No intra or extra-axial mass lesions are visualized. There is no CT evidence of acute cortical infarction. There is no evidence of midline shift. There is no acute hemorrhage. No calvarial fractures are visualized. There are minimal white matter hypodensities likely on a small vessel basis. There is no evidence of pathologic ventricular dilatation. There is no evidence of acute sinusitis. There are postsurgical changes involving both maxilla, as well as the nasal bridge and frontal bone. IMPRESSION: No acute intracranial findings Electronically signed by: Sean Casiano M.D. 06/04/2016 5:29 PM Dictated Date/Time: 06/04/2016 5:27 PM
[2016-06-04 17:39] LABS: BASO % 0.4 %; BASO ABS # 0.03 K/uL (0-0.2); COMPLETE YES; EOS % 2.3 %; IG% 0.1 %; LYMPH % 14.5 %; LYMPH ABS # 1.12 K/uL (1.2-3.4); MEAN PLATELET VOLUME 10.3 fL (7.4-10.4); MONO % 9.2 %; NEUT % 73.5 %; PLATELET COUNT 96 K/uL (130-400); PLT ESTIMATE DECREASED
[2016-06-04 18:09] LABS: URINE APPEARANCE CLEAR (CLEAR); URINE BILIRUBIN NEG (NEG); URINE COLOR YELLOW; URINE EPITHELIAL CELL AUTO 0-5 /lpf (0-5); URINE NITRITE NEG (NEG); URINE SPECIFIC GRAVITY 1.013 (1.000-1.030); UROBILINOGEN NEG (NEG); ZZUR CULT IF INDIC CLEAN CATCH NO
--- NOTE | 2016-06-04 18:09 | DIAGNOSTIC IMAGING REPORT ---
RIGHT RIBS UNILATERAL WITH PA CHEST CLINICAL HISTORY: Right rib pain status post trauma COMPARISON STUDY: Chest x-ray dated 10/22/2015 FINDINGS: The cardiac and mediastinal contours remain stable. The heart is mildly enlarged. There is persistent interstitial thickening which is perhaps slightly progressive. There is no pneumothorax. There are fractures of the right 10th and 11th ribs. IMPRESSION: 1. Right 10th and 11th rib fractures. No evidence of pneumothorax. 2. Basilar interstitial thickening, slightly progressive when compared the prior 2015 study Electronically signed by: Sean Casiano M.D. 06/04/2016 6:07 PM Dictated Date/Time: 06/04/2016 6:04 PM
[2016-06-04 18:12] LABS: MANUAL MICROSCOPIC REQUIRED? NO; REVIEW REQ? NO
[2016-06-04 18:33] LABS: BENZODIAZEPINE, URINE NEG (NEG); COCAINE,URINE NEG (NEG); PHENCYCLIDINE, URINE NEG (NEG)
[2016-06-04] MEDS ORDERED: NITROGLYCERIN 0.4 MG SL PER TAB CHARGE SL PRN (20:00)
[2016-06-04] MEDS ORDERED: OXYCODONE HCL IR 5 MG TAB (IMMEDIATE RELEASE) PO ONE (20:12)
[2016-06-04] MEDS ORDERED: CLONAZEPAM 0.5 MG TAB PO PRN (20:15)
[2016-06-04 20:32] VITALS: O2SAT 94
[2016-06-04] MEDS: ASPIRIN 81 MG CHEW PO ONE ×2 (20:45→22:42)
[2016-06-04] MEDS ORDERED: LACTULOSE SYRUP 10 GM/15 ML BTL 473 ML PO SCH (21:00)
[2016-06-04 21:03] VITALS: BP 154/60; PULSE 70; TEMP 37.3; Ht 170.2 cm; Wt 98.8 kg
[2016-06-04] MEDS ORDERED: ENOXAPARIN 40 MG/0.4 ML SYR SC SCH (22:00)
[2016-06-04] MEDS ORDERED: ATORVASTATIN 40 MG TAB PO ONE (22:33)
[2016-06-04] MEDS: PRAMIPEXOLE DIHYDROCHLORIDE 0.5 MG TAB PO SCH (22:40)
[2016-06-04] MEDS: RIFAXIMIN TAB 550 MG TAB PO SCH (22:41)
[2016-06-04] MEDS: PANTOprazole SOD 40 MG TAB PO SCH (22:41)
[2016-06-04] MEDS: DOXYCYCLINE IV 100 MG in DEXTROSE 5% 100ML 100 ML IV SCH (22:42)
[2016-06-04] MEDS: LACTULOSE SYRUP 10 GM/15 ML BTL 473 ML PO SCH (22:43)
--- NOTE | 2016-06-04 22:44 | History and Physical ---
History & Physical Date & Time of Service: Jun 04, 2016 at 20:04 Chief Complaint: SOB Primary Care Physician: Ariel Estrada M.D. History of Present Illness Source: patient 66 yo M with HCV cirrhosis presents after a fall at home where he was laying on the floor for 6 hours in pain. There was no reported loss of consciousness, and the patient states that he could move, but the pain was so bad that he just laid there. His sister finally came by to check on him and found him there. He appears encephalopathic although he is A&O x 3. He is lethargic-appearing and has a history of high ammonia levels in the past. He complains of mental fog. He is compliant with lactulose and has 2-3 BMs daily. Earlier today he was in the ER for a bursitis/cellulitis of the L elbow. He cannot tell me for how long it was there, but there is a well-healed scab present over some redness on the olecranon process so this appears to be subacute with some more acute red streaking down the dorsal side of his forearm. He has pain from this. For this infection he was given doxycycline PO and sent home. He had only received one dose of this in the ER prior to the fall. He also had been given some Ativan 1mg in the ER, which may be contributing to his mental fog, additionally. Lastly he is very clinically dehydrated with severe dehydration and scaling in the roof of his mouth and dry lips and mucous membranes. He denies any recent weight gain and states that his LAsix was just cut back to two pills BID. He does live alone and his sister is here with him in the ER. He states that there has saira discussion about placing him in assisted living recently and he is concerned that this will require him to give up all his possessions. He would like to discuss this further with Case Management. ROS reveals no chest pain, but he did have total body pain spontaneously one week ago, and he cannot elaborate more on this. He denies SOB, abdominal pain, weight gain, bleeding or bruising, cough fevers or chills. Past Medical/Surgical History Medical Problems: (1) Anemia Status: Chronic (2) Chronic hepatitis C Status: Chronic (3) Cirrhosis of liver Status: Chronic (4) Esophageal varices Status: Chronic (5) Hernia repair Status: Resolved (6) History of - schizophrenia Status: Chronic (7) Zkzvn-Gmmwwiaim-Cvwjy pattern Status: Chronic Family History Cancer Heart disease Hypertension Lung disease Seizures Social History Smoking Status: Former Smoker Drug Use: none Marital Status: Housing status: lives alone Occupational Status: disabled Immunizations History of Influenza Vaccine: Yes Influenza Vaccine Date: Oct 09, 2015 History of Tetanus Vaccine?: Yes Tetanus Immunization Date: Nov 26, 2007 History of Pneumococcal: Yes Pneumococcal Date: Mar 14, 2014 History of Hepatitis B Vaccine: Yes Hepatitis Immunization Date: Sep 06, 2011 Multi-Drug Resistant Organisms History of MDRO: No Allergies Coded Allergies: Zolpidem (Verified Adverse Reaction, Intermediate, passes out, 06/04/16) Home Medications Scheduled Amiloride Hcl (Amiloride Hcl), 20 MG PO BID Cholecalciferol (Vitamin D3), 1,000 UNIT PO DAILY Clonazepam (Clonazepam Odt), 0.25 MG PO HS Doxycycline Monohydrate (Monodox), 100 MG PO BID Furosemide (Lasix), 80 MG PO BID Lactulose (Encephalopathy) (Lactulose), 1 TBS PO BID Nutritional Supplements (Colon Formula), 1 CAP PO DAILY Omeprazole (Prilosec), 20 MG PO QPM Omeprazole (Prilosec), 40 MG PO QAM Pramipexole Dihydrochloride (Mirapex), 1 MG PO HS Rifaximin (Xifaxan), 550 MG PO BID Sertraline HCl (Sertraline HCl), 50 MG PO QAM Zinc Sulfate (Zinc Sulfate), 220 MG PO DAILY Scheduled PRN Ondansetron Hcl (Zofran), 4 MG PO Q8H PRN for Nausea Tramadol (Ultram), 50 MG PO Q6H PRN for Pain Review of Systems All systems were reviewed and negative except as indicated in HPI. Physical Exam Vital Signs Date Time Temp Pulse Resp B/P Pulse Ox O2 Delivery O2 Flow Rate FiO2 06/04/16 18:30 68 18 136/60 91 Room Air 06/04/16 17:40 69 17 155/74 94 Room Air 06/04/16 17:32 71 134/57 77 142/62 78 153/83 81 06/04/16 16:11 78 06/04/16 15:40 36.9 73 23 147/69 95 Room Air 06/04/16 15:40 95 Nasal Cannula 06/04/16 15:40 95 Room Air GEN: WNWD, in no acute distress, can answer questions appropriately and is A&O x 3 but is lethargic and slow to respond. HEENT: NC/AT, PERRL, mildly jaundiced sclerae CARDIO: reg rate, S1/2 heard without m/g/r LUNGS: CTA bilaterally, no crackles, rales or wheezes, good diaphragmatic excursion ABD: soft, non-tender, non-distended, no rebound or guarding, +BS EXTREMITY: significant changes of skin associated with long-term swelling and edema-woody appearance to skin with dusky hue from erythroderma. NEURO: CN 2-12 intact, sensation intact throughout, no asterixis, no gross focal deficits MUSC: 5/5 strength throughout, no focal deficits SKIN: warm and dry and LE skin changes as above. Diagnostics Laboratory Results Results Past 24 Hours Test 06/04/16 16:37 06/04/16 17:03 06/04/16 17:09 06/04/16 17:40 Range/Units Prothrombin Time 11.5 9.0-12.0 SECONDS Prothromb Time International Ratio 1.1 0.9-1.1 Activated Partial Thromboplast Time 24.8 21.0-31.0 SECONDS Partial Thromboplastin Ratio 1.0 Sodium Level 147 136-145 mmol/L Potassium Level 4.2 3.5-5.1 mmol/L Chloride Level 114 98-107 mmol/L Carbon Dioxide Level 26 21-32 mmol/L Anion Gap 7.0 3-11 mmol/L Blood Urea Nitrogen 18 7-18 mg/dl Creatinine 0.86 0.60-1.40 mg/dl Est Creatinine Clear Calc Drug Dose 97.6 ml/min Estimated GFR () 106.2 Estimated GFR (Non- 91.6 BUN/Creatinine Ratio 20.5 10-20 Random Glucose 111 70-99 mg/dl Calcium Level 8.4 8.5-10.1 mg/dl Magnesium Level 2.5 1.8-2.4 mg/dl Total Bilirubin 3.5 0.2-1 mg/dl Aspartate Amino Transf (AST/SGOT) 38 15-37 U/L Alanine Aminotransferase (ALT/SGPT) 18 12-78 U/L Alkaline Phosphatase 105 45-117 U/L Ammonia 66.0 11-32 umol/L Total Creatine Kinase 221 39-308 U/L Creatine Kinase MB 6.6 0.5-3.6 ng/ml Creatine Kinase MB Ratio 3.0 0-3.0 Troponin I 0.074 0-0.045 ng/ml Total Protein 6.5 6.4-8.2 gm/dl Albumin 2.8 3.4-5.0 gm/dl Globulin 3.7 2.5-4.0 gm/dl Albumin/Globulin Ratio 0.8 0.9-2 Lipase 170 73-393 U/L White Blood Count 7.71 4.8-10.8 K/uL Red Blood Count 3.64 4.7-6.1 M/uL Hemoglobin 12.2 14.0-18.0 g/dL Hematocrit 35.5 42-52 % Mean Corpuscular Volume 97.5 80-100 fL Mean Corpuscular Hemoglobin 33.5 25-34 pg Mean Corpuscular Hemoglobin Concent 34.4 32-36 g/dl Platelet Count 96 130-400 K/uL Mean Platelet Volume 10.3 7.4-10.4 fL Neutrophils (%) (Auto) 73.5 % Lymphocytes (%) (Auto) 14.5 % Monocytes (%) (Auto) 9.2 % Eosinophils (%) (Auto) 2.3 % Basophils (%) (Auto) 0.4 % Neutrophils # (Auto) 5.66 1.4-6.5 K/uL Lymphocytes # (Auto) 1.12 1.2-3.4 K/uL Monocytes # (Auto) 0.71 0.11-0.59 K/uL Eosinophils # (Auto) 0.18 0-0.5 K/uL Basophils # (Auto) 0.03 0-0.2 K/uL RDW Standard Deviation 55.0 36.4-46.3 fL RDW Coefficient of Variation 15.5 11.5-14.5 % Immature Granulocyte % (Auto) 0.1 % Immature Granulocyte # (Auto) 0.01 0.00-0.02 K/uL Platelet Estimate DECREASED Red Blood Cell Morphology Unremarkable Bedside Troponin I 0.030 0-0.045 ng/ml Urine Color YELLOW Urine Appearance CLEAR CLEAR Urine pH 7.0 4.5-7.5 Urine Specific [place] 1.013 1.000-1.030 Urine Protein NEG NEG Urine Glucose (UA) NEG NEG Urine Ketones NEG NEG Urine Occult Blood TRACE NEG Urine Nitrite NEG NEG Urine Bilirubin NEG NEG Urine Urobilinogen NEG NEG Urine Leukocyte Esterase NEG NEG Urine WBC (Auto) 1-5 0-5 /hpf Urine RBC (Auto) 5-10 0-4 /hpf Urine Hyaline Casts (Auto) 1-5 0-5 /lpf Urine Epithelial Cells (Auto) 0-5 0-5 /lpf Urine Bacteria (Auto) NEG NEG Urine Opiates Screen NEG NEG Urine Methadone, Qualitative NEG NEG Urine Barbiturates NEG NEG Urine Phencyclidine (PCP) Level NEG NEG Ur Amphetamine/Methamphetamine NEG NEG MDMA (Ecstasy) Screen NEG NEG Urine Benzodiazepines Screen NEG NEG Urine Cocaine Metabolite NEG NEG Urine Marijuana (THC) NEG NEG Diagnostic Radiology CT Head w/o contrast: No acute process. RIBS UNILATERAL WITH PA CHEST: IMPRESSION: 1. Right 10th and 11th rib fractures. No evidence of pneumothorax. 2. Basilar interstitial thickening, slightly progressive when compared the prior 2016 study EKG SR 72, no ST changes. Impression Assessment and Plan 66 yoM with encephalopathy s/p mechanical fall at home and subsequent R rib fractures 1. Encephalopathy--etiologies include dehydration, hepatic encephalopathy and drug reaction from Ativan earlier in the ER. Elevated sodium 147 along with elevated raio BUN:Creat and severely dry mucous membranes supports the dehydration picture. Hold diuretics and encourage PO intake. If that isn't enough he may need some IVF. Consider ENT OMFS eval of roof of mouth behind dentures. Daily weights. GI consult. 2. Hypertroponemia-TTE in am, trend enzymes, ASA 325/statin given tonight while ruling out ACS. Pt without chest pain, but did have some last week and is lethargic and a very poor historian and someone who just laid on his bathroom floor for 6 hours unable to move. 3. Hyperatremia 2/2 dehydration 2/2 diuretics and home fluid restriction--plan per #1. 4. Cirrhosis-no evidence of ascites on exam today. Ammonia is elevated and some encephalopathy is present. No asterixis on exam. Cont monitoring lactulose intake and bowel movements to titrate to three per day. Cont Rifaximin. Consult GI for recs 5. Rib fractures 2/2 trauma-no PTX on CXR. Cont supportive care with pain control. IS at bedside, encourage ambulation once mental status is improved. 6. Thrombocytopenia-around baseline likely 2/2 cirrhosis DVT prophy: SCDs, held Lovenox 2/2 thrombocytopenia (relative contraindication <100K) Full Code Dispo-pending PT/OT evals and improvement in mental status Heather Richardson, DO Hospitalist Level of Care Telemetry Resuscitation Status FULL RESUSCITATION VTE Prophylaxis VTE Risk Assessment Done? Y/N: Yes Risk Level: Moderate Given or contraindicated: Contraindicated
[2016-06-05] VITALS (7 sets, daily range): BP systolic 116–167; BP diastolic 57–72; PULSE 63–72; TEMP 36.5–37; O2SAT 90–93
[2016-06-05] MEDS: OXYCODONE HCL IR 5 MG TAB (IMMEDIATE RELEASE) PO PRN ×4 (01:48→20:19)
[2016-06-05 07:10] LABS: HEMATOCRIT 33.3 % (42-52); MEAN CELL VOLUME 101.2 fL (80-100); MEAN CORPUSCULAR HGB CONC 33.6 g/dl (32-36); PLATELET COUNT 101 K/uL (130-400); RED BLOOD COUNT 3.29 M/uL (4.7-6.1); WHITE BLOOD COUNT 7.97 K/uL (4.8-10.8)
[2016-06-05 07:43] LABS: CREATININE 0.78 mg/dl (0.60-1.40)
[2016-06-05 07:44] LABS: BUN/CREATININE RATIO 22.3 (10-20); CALCIUM 8.3 mg/dl (8.5-10.1); MAGNESIUM 2.6 mg/dl (1.8-2.4); POTASSIUM 3.6 mmol/L (3.5-5.1)
[2016-06-05] MEDS: SERTRALINE HCL 50 MG TAB PO SCH (07:49)
[2016-06-05] MEDS: CHOLECALCIFEROL 1000 INTER.UNIT TAB PO SCH (07:49)
[2016-06-05] MEDS: SACCHAROMYCES BOUL (FLORASTOR) 250 MG CAP PO SCH (07:49)
[2016-06-05] MEDS: LACTULOSE SYRUP 10 GM/15 ML BTL 473 ML PO SCH ×3 (07:50→20:20)
[2016-06-05] MEDS: ZINC SULFATE 220 MG CAP PO SCH (07:50)
[2016-06-05] MEDS: RIFAXIMIN TAB 550 MG TAB PO SCH ×2 (07:50→20:21)
[2016-06-05] MEDS: PANTOprazole SOD 40 MG TAB PO SCH ×2 (07:50→20:20)
[2016-06-05 08:15] LABS: ALB/GLOB RATIO 0.8 (0.9-2)
--- NOTE | 2016-06-05 09:31 | ECHOCARDIOGRAM REPORT ---
*NOTICE TO RECEIVING CONSTITUTION PARTY AGENCY This information is strictly Confidential and protected under [place] law. [place] law prohibits you from making any further disclosure of this information unless further disclosure is expressly permitted by the written consent of the person to whom it pertains or is authorized by law. A general authorization for the release of medical or other information is not sufficient for this purpose. Hospital accepts no responsibility if the information is made available to any other person, INCLUDING THE PATIENT. Interpretation Summary * Name: PIO CASTILLO Study Date: 06/05/2016 06:46 AM BP: 136/66 mmHg * Patient Location: [facility] HR: 67 * : 1950 (M/d/yyyy) Gender: Male Height: 67 in * Age: 66 yrs Weight: 219 lb * Referring Physician: Heather Richardson * Performed By: Yosef Castillo RDCS * * Reason For Study: Elevated troponin, rule out wall motion abnormality * BSA: 2.1 m2 * -- Conclusions -- * The left ventricle is normal in size. * There is normal left ventricular wall thickness. * The left ventricular wall motion is normal. * Ejection Fraction = 60-65%. * There is trace mitral regurgitation. * There is trace tricuspid regurgitation. * There is no pericardial effusion. Procedure Details * A complete two-dimensional transthoracic echocardiogram was performed (2D, M-mode, Doppler and color flow Doppler). * The study was technically adequate. Left Ventricle * The left ventricle is normal in size. * There is normal left ventricular wall thickness. * Left ventricular systolic function is normal. * Ejection Fraction = 60-65%. * The left ventricular wall motion is normal. Right Ventricle * The right ventricle is normal in size and function. Atria * The left atrium is moderately dilated. * Right atrial size is normal. * No ASD detected; PFO is not assessed. Mitral Valve * The mitral valve anatomy is normal. * There is no mitral valve stenosis. * There is trace mitral regurgitation. Tricuspid Valve * The tricuspid valve anatomy is normal. * There is no tricuspid stenosis. * There is trace tricuspid regurgitation. Aortic Valve * The aortic valve is trileaflet. * No hemodynamically significant valvular aortic stenosis. * No aortic regurgitation is present. Pulmonic Valve * The pulmonic valve is not well visualized. Great Vessels * The aortic root is normal size. Pericardium/Pleural * There is no pericardial effusion. Great Vessels * Normal inferior vena cava diameter and respiratory variation suggests normal central venous pressure. MMode 2D Measurements and Calculations IVSd 1.2 cm IVSs 1.7 cm LVIDd 5.3 cm LVIDs 3.2 cm LVPWd 0.99 cm LVPWs 1.5 cm IVS/LVPW 1.2 FS 39.3 % EDV(Teich) 133.2 ml ESV(Teich) 40.8 ml EF(Teich) 69.3 % EDV(cubed) 145.8 ml ESV(cubed) 32.7 ml EF(cubed) 77.6 % % IVS thick 45.7 % % LVPW thick 52.3 % LV mass(C)d 217.0 grams LV mass(C)dI 103.2 grams/m\S\2 LV mass(C)s 189.5 grams LV mass(C)sI 90.2 grams/m\S\2 SV(Teich) 92.4 ml SI(Teich) 43.9 ml/m\S\2 SV(cubed) 113.2 ml SI(cubed) 53.9 ml/m\S\2 EPSS 0.48 cm Ao root diam 3.3 cm Ao root area 8.7 cm\S\2 ACS 2.2 cm LA dimension 5.5 cm asc Aorta Diam 3.4 cm LA/Ao 1.6 LVOT diam 2.2 cm LVOT area 3.8 cm\S\2 LVAd ap4 32.3 cm\S\2 LVLd ap4 8.5 cm EDV(MOD-sp4) 101.0 ml LVAs ap4 13.7 cm\S\2 LVLs ap4 6.2 cm ESV(MOD-sp4) 26.0 ml EF(MOD-sp4) 74.3 % LVAd ap2 29.0 cm\S\2 LVLd ap2 8.0 cm EDV(MOD-sp2) 87.0 ml LVAs ap2 12.4 cm\S\2 LVLs ap2 5.8 cm ESV(MOD-sp2) 22.0 ml EF(MOD-sp2) 74.7 % SV(MOD-sp4) 75.0 ml SI(MOD-sp4) 35.7 ml/m\S\2 SV(MOD-sp2) 65.0 ml SI(MOD-sp2) 30.9 ml/m\S\2 Doppler Measurements and Calculations MV E max martin 133.9 cm/sec MV A max martin 96.9 cm/sec MV E/A 1.4 MV dec time 0.24 sec Ao V2 max 191.8 cm/sec Ao max PG 14.7 mmHg Ao max PG (full) 5.4 mmHg ARTURO(V,A) 3.0 cm\S\2 ARTURO(V,D) 3.0 cm\S\2 LV V1 max PG 9.3 mmHg LV V1 max 152.9 cm/sec PA V2 max 141.2 cm/sec PA max PG 8.0 mmHg PI end-d martin 86.9 cm/sec TR max martin 295.3 cm/sec
[2016-06-05] MEDS: DOXYCYCLINE IV 100 MG in DEXTROSE 5% 100ML 100 ML IV SCH ×2 (10:00→10:15)
[2016-06-05] MEDS: BOOST VANILLA PO SCH ×2 (16:43)
[2016-06-05] MEDS: TRAMADOL HCL 50 MG TAB PO PRN (17:00)
--- NOTE | 2016-06-05 17:04 | Progress Note ---
Internal Med Progress Note Date of Service: Jun 05, 2016. Provider Documentation: SUBJECTIVE: Patient is alert/awake and is lying in his bed in no apparent distress. He remembers all the events what happened at home. C/O pain in right side of chest and in left elbow. OBJECTIVE: Vital Signs-as noted below Examination: GEN: WNWD, in no acute distress, can answer questions appropriately and is A&O x 3 HEENT: NC/AT, PERRL, mildly jaundiced sclerae CARDIO: reg rate, S1/2 heard without m/g/r LUNGS: CTA bilaterally, no crackles, rales or wheezes, good diaphragmatic excursion ABD: soft, non-tender, non-distended, no rebound or guarding, +BS EXTREMITY: significant changes of skin associated with long-term swelling and edema-woody appearance to skin with dusky hue from erythroderma. NEURO: CN 2-12 intact, sensation intact throughout, no asterixis, no gross focal deficits MUSC: 5/5 strength throughout, no focal deficits SKIN: warm and dry and LE skin changes as above. Lab data as noted below. ASSESSMENT & PLAN: Echocardiogram (06/05/2016) The left ventricle is normal in size. There is normal left ventricular wall thickness. The left ventricular wall motion is normal. Ejection Fraction = 60-65%. There is trace mitral regurgitation. There is trace tricuspid regurgitation. There is no pericardial effusion. Elevated Troponin: Clinically & hemodynamically stable. Likely Troponin leak -Troponin trend is 0.07 --> 0.04. -Reviewed findings of Echo. Encephalopathy--Improving. Etiologies include dehydration, hepatic encephalopathy,hypernatremia and drug reaction from Ativan earlier in the ER. -Holding diuretics and encourage PO intake. -Ammonia is elevated ( 66 --> 58). -Continue lactulose -Fall precautions Right Sided Rib fractures: Due to fall. No pneumothorax on Chest X-Ray. . -Cont supportive care with pain control. - IS at bedside, encourage ambulation with assistance. Hypernatremia: Due to dehydration -Continue monitoring Cirrhosis-no evidence of ascites on exam today. Ammonia is elevated and some encephalopathy is present. No asterixis on exam. -Cont monitoring lactulose intake and bowel movements to titrate to three per day. -Cont Rifaximin. Consult GI for recs Thrombocytopenia-around baseline likely due to liver cirrhosis DVT Prophylaxis: SCDs, Code Status: Full Code Disposition: Pending PT/OT evals and improvement in mental status Vital Signs: Date Time Temp Pulse Resp B/P Pulse Ox O2 Delivery O2 Flow Rate FiO2 06/05/16 15:29 36.5 63 18 143/65 92 Room Air 06/05/16 12:00 36.8 66 20 165/72 91 Room Air 06/05/16 12:00 Room Air 06/05/16 08:21 36.9 64 19 136/66 92 Room Air 06/05/16 08:00 Room Air 06/05/16 04:00 Room Air 06/05/16 04:00 37.0 70 22 116/57 92 Nasal Cannula 3.0 06/05/16 00:02 36.8 72 20 135/68 90 Room Air 06/05/16 00:00 Room Air 06/04/16 21:03 37.3 70 20 154/60 06/04/16 21:00 Room Air 06/04/16 20:32 76 17 98/53 94 06/04/16 18:30 68 18 136/60 91 Room Air 06/04/16 17:40 69 17 155/74 94 Room Air 06/04/16 17:32 71 134/57 77 142/62 78 153/83 81 Lab Results: Results Past 24 Hours Test 06/04/16 17:09 06/04/16 17:40 06/05/16 06:28 06/05/16 10:00 Range/Units Bedside Troponin I 0.030 0-0.045 ng/ml Urine Color YELLOW Urine Appearance CLEAR CLEAR Urine pH 7.0 4.5-7.5 Urine Specific [place] 1.013 1.000-1.030 Urine Protein NEG NEG Urine Glucose (UA) NEG NEG Urine Ketones NEG NEG Urine Occult Blood TRACE NEG Urine Nitrite NEG NEG Urine Bilirubin NEG NEG Urine Urobilinogen NEG NEG Urine Leukocyte Esterase NEG NEG Urine WBC (Auto) 1-5 0-5 /hpf Urine RBC (Auto) 5-10 0-4 /hpf Urine Hyaline Casts (Auto) 1-5 0-5 /lpf Urine Epithelial Cells (Auto) 0-5 0-5 /lpf Urine Bacteria (Auto) NEG NEG Urine Opiates Screen NEG NEG Urine Methadone, Qualitative NEG NEG Urine Barbiturates NEG NEG Urine Phencyclidine (PCP) Level NEG NEG Ur Amphetamine/Methamphetamine NEG NEG MDMA (Ecstasy) Screen NEG NEG Urine Benzodiazepines Screen NEG NEG Urine Cocaine Metabolite NEG NEG Urine Marijuana (THC) NEG NEG White Blood Count 7.97 4.8-10.8 K/uL Red Blood Count 3.29 4.7-6.1 M/uL Hemoglobin 11.2 14.0-18.0 g/dL Hematocrit 33.3 42-52 % Mean Corpuscular Volume 101.2 80-100 fL Mean Corpuscular Hemoglobin 34.0 25-34 pg Mean Corpuscular Hemoglobin Concent 33.6 32-36 g/dl RDW Standard Deviation 58.4 36.4-46.3 fL RDW Coefficient of Variation 15.9 11.5-14.5 % Platelet Count 101 130-400 K/uL Mean Platelet Volume 11.0 7.4-10.4 fL Sodium Level 148 136-145 mmol/L Potassium Level 3.6 3.5-5.1 mmol/L Chloride Level 116 98-107 mmol/L Carbon Dioxide Level 25 21-32 mmol/L Anion Gap 7.0 3-11 mmol/L Blood Urea Nitrogen 17 7-18 mg/dl Creatinine 0.78 0.60-1.40 mg/dl Est Creatinine Clear Calc Drug Dose 107.2 ml/min Estimated GFR () 110.6 Estimated GFR (Non- 95.4 BUN/Creatinine Ratio 22.3 10-20 Random Glucose 95 70-99 mg/dl Calcium Level 8.3 8.5-10.1 mg/dl Magnesium Level 2.6 1.8-2.4 mg/dl Total Bilirubin 2.6 0.2-1 mg/dl Aspartate Amino Transf (AST/SGOT) 24 15-37 U/L Alanine Aminotransferase (ALT/SGPT) 17 12-78 U/L Alkaline Phosphatase 86 45-117 U/L Total Protein 5.4 6.4-8.2 gm/dl Albumin 2.4 3.4-5.0 gm/dl Globulin 3.0 2.5-4.0 gm/dl Albumin/Globulin Ratio 0.8 0.9-2 Ammonia 58.0 11-32 umol/L Troponin I 0.042 0-0.045 ng/ml
[2016-06-05] MEDS ORDERED: DOCUSATE SODIUM/SENNA 50/8.6MG TAB PO ONE (17:15)
--- NOTE | 2016-06-05 17:36 | GASTROINTESTINAL CONSULTATION ---
DATE OF CONSULTATION: 06/05/2016 RACE: . ATTENDING PHYSICIAN: Dr. Richardson. CONSULTING PHYSICIAN: Dr. Ba. REASON FOR CONSULTATION: Questionable hepatic encephalopathy, hep C, cirrhosis. HISTORY OF PRESENT ILLNESS: Oskar Bridges is a 66-year-old male with a significant past medical history of hepatitis C, cirrhosis and history of hepatic encephalopathy. He was previously treated with Harvoni therapy and has been under the care of Dr. Strong as an outpatient. Secondary medical concerns include depression and schizophrenia. He has had complications from his liver disease including a history of hepatic encephalopathy, for which he takes Xifaxan as well as lactulose therapy at home and a history of small esophageal varices and ascites. He states that he has never had a paracentesis performed. He did have an upper endoscopy last month by Dr. Strong, which showed no evidence of gastric or esophageal varices. The patient was noted to have some portal hypertensive gastropathy, but no other significant findings. He presented to the department of emergency medicine on 06/04 after he was found down after sustaining a fall. He did not lose consciousness. On arrival to the department of emergency medicine, he did have a head CT which was negative. Laboratory studies at that time did show evidence of elevated ammonia level to 66 and he was subsequently admitted and was noted to have rib fractures on a chest x-ray and continued treatment with IV fluids as well as lactulose and Xifaxan. He was also noted to have evidence on laboratory studies of hypernatremia with an initial sodium level of 147. At the present time, he is sitting up at his bedside, eating. He is able to answer questions appropriately and is denying any current headaches, blurred vision, syncope, seizures, recent loss of consciousness, dizziness or lightheadedness. He further denies any recent chest pain, palpitations, shortness of breath, cough, hematemesis, melena or hematochezia. He denies any intake of alcohol and has no further complaints. PAST MEDICAL HISTORY: Significant for hep C, cirrhosis, history of hepatic encephalopathy, history of ascites and history of esophageal varices, schizophrenia, depression, orthostatic hypotension, history of hyperkalemia, acute renal failure, hyperlipidemia, restless leg syndrome. [id number]-[id number]. PAST SURGICAL HISTORY: Includes a hernia repair. ALLERGIES: ZOLPIDEM. MEDICATIONS AT PRESENT: Lipitor 80 mg p.o. at bedtime, vitamin D 1000 international units p.o. daily, Zoloft 50 mg p.o. q.a.m., zinc sulfate 220 mg p.o. daily, Florastor 250 mg p.o. daily, doxycycline 100 mg IV b.i.d., pramipexole 1 mg p.o. at bedtime, Xifaxan 550 p.o. b.i.d., Protonix 40 mg p.o. b.i.d., Chronulac syrup or lactulose 20 g p.o. t.i.d., tramadol 50 mg p.o. q. 6. p.r.n. pain, Klonopin 0.25 mg p.o. at bedtime p.r.n. anxiety, Roxicodone 5 mg p.o. q. 4. p.r.n. pain, Zofran 4 mg IV q. 6. p.r.n. nausea, nitroglycerin 0.4 mg sublingual as directed p.r.n. chest pain. SOCIAL HISTORY: He is a former smoker. No alcohol or illicit drug use at present. He is , lives alone. FAMILY HISTORY: Negative for GI malignancy or inflammatory bowel disease or liver disease. REVIEW OF SYSTEMS: Negative [id number] review other than pertinent positives listed in the HPI. PHYSICAL EXAMINATION: VITAL SIGNS: Temp 36.8, pulse 66, respirations 20, blood pressure 165/72, pulse ox 91% on room air. GENERAL: He is awake, cooperative; oriented to person, place and time. Chronic ill appearing. HEAD: Normocephalic, atraumatic. EYES: Pupils equally round. Extraocular muscles are intact. ENT: External evaluation of ears and nose are normal. Oropharynx is clear. NECK: Soft and supple. CHEST: Clear to auscultation in the anterior lung galo, decreased breath sounds in bilateral bases. CARDIOVASCULAR SYSTEM: Regular rate and rhythm. ABDOMEN: Soft, nontender. Slightly distended. Positive bowel sounds. There is no appreciable hepatosplenomegaly. EXTREMITIES: No clubbing, cyanosis, or edema. SKIN: Soft and pink. Good turgor. NEUROLOGIC: No evidence of asterixis. LABORATORY STUDIES AND RADIOGRAPHIC STUDIES: Reviewed in the HPI. IMPRESSION: A 66-year-old male with history of hep C, cirrhosis, ascites, esophageal varices and hepatic encephalopathy, who presented after suffering a fall and was noted to have a change in mental status. PLAN: At the present time, I would recommend that the patient be continued on his current dosing of lactulose and to titrate this to have 3 bowel movements per day. I would also recommend that he continue on Xifaxan 550 mg p.o. b.i.d. Other causes of his encephalopathy could be his noted hypernatremia on laboratory studies and I would recommend normalization of this, which I will defer to the primary team in regards to treatment and workup of this condition. I would avoid giving the patient anxiolytic medications as this can cause symptomatic change in mental status, mimicking worsening hepatic encephalopathy. I will follow the patient through the weekend. He will be seen by his primary GI team from [facility], starting Monday. Once again, thanks for allowing me to participate in the care of this patient. If you have any further questions, please do not hesitate in contacting me.
--- NOTE | 2016-06-05 17:36 | CARDIOLOGY CONSULTATION ---
DATE OF CONSULTATION: 06/05/2016 REFERRING: Dr. Richardson. PRIMARY CARE PHYSICIAN: Dr. Estrada. REFERRAL DIAGNOSIS: Elevated troponin. HISTORY OF PRESENT ILLNESS: The patient is a 66-year-old male whose history is notable for advanced hepatic cirrhosis secondary to hepatitis C, history of hyperlipidemia, past schizophrenia, chronic past renal insufficiency, but no history of acute cardiac complaints. Past evaluation in 2012 for elevated troponins unrevealing. The patient presents this admission noting having suffered a mechanical fall at home. He notes he lost his balance and fell striking his right chest on the ground. He notes he was unable to rise again due to severe pain. Notes no current complaints of chest pain other than tenderness on the right side. Notes no fevers, chills or productive cough. Notes no melena, hematochezia, dysuria or hematuria. Notes no racing heart or palpitations. Notes no signs or symptoms of worsening edema, though has chronic peripheral edema. Notes no fevers, chills or productive cough. Evaluation on admission demonstrated acute rib fractures of the right 10th and 11th ribs. ALLERGIES: ZOLPIDEM. MEDICATIONS: Prior to hospitalization, amelioride 20 mg b.i.d., Klor-Con clonazepam 0.5 two tablets at bedtime, doxycycline 100 mg b.i.d., Lasix 80 mg b.i.d., lactulose 10 grams b.i.d., omeprazole 20 mg p.o. daily in the p.m., 40 mg a.m.; Mirapex 1 mg at bedtime, rifaximin 150 mg b.i.d., sertraline 50 mg q.a.m., tramadol p.r.n. pain, zinc sulfate 220 mg p.o. daily. FAMILY HISTORY: Positive for heart disease. 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 He is a nonsmoker, nondrinker. PHYSICAL EXAMINATION: VITAL SIGNS: Heart rate 66, blood pressure is 136/66. HEENT: Normocephalic, atraumatic. NECK: Thin. There is no jugular venous distention at 30 degrees. LUNGS: Reveal diminished breath sounds at the bases. CARDIOVASCULAR: Regular. There is no S3 gallop. ABDOMEN: Soft with moderate distention. EXTREMITIES: Reveal chronic 2+ or greater edema to the knees. DATA: EKG reveals sinus rhythm with borderline left atrial enlargement. No acute ST segment changes. Echocardiogram demonstrates preserved LV systolic function, EF 60%-65%. LABORATORY STUDIES: White cell count 7.7, hemoglobin is 12.2. Ammonia level is elevated at 66 and 58. Troponin on presentation was 0.074, on repeat was 0.04; albumin level is 2.4. IMPRESSION: A 66-year-old male with history of past hepatic cirrhosis, chronic hepatic encephalopathy, admitted after a mechanical fall at home, right rib fractures. Initial troponin was minimally elevated and findings do not suggest acute coronary syndrome, likely reflect patient's underlying metabolic derangements. EKG and echocardiogram demonstrates preserved LV function and no acute ST segment changes, history is not consistent with coronary artery disease. Would continue management as previously ordered for underlying medical issues. Contact with any further questions. [facility]
[2016-06-05] MEDS: DOXYCYCLINE HYCLATE 100 MG CAP PO SCH (20:20)
[2016-06-05] MEDS: PRAMIPEXOLE DIHYDROCHLORIDE 0.5 MG TAB PO SCH (20:20)
[2016-06-05] MEDS ORDERED: ATORVASTATIN 40 MG TAB PO SCH (21:00)
[2016-06-05 22:36] LABS: CKMB/CK RATIO 3.2 (0-3.0)
[2016-06-06] VITALS (8 sets, daily range): BP systolic 96–153; BP diastolic 49–79; PULSE 63–74; TEMP 36.6–37.1; O2SAT 91–97
[2016-06-06] MEDS: TRAMADOL HCL 50 MG TAB PO PRN ×2 (01:28→17:30)
[2016-06-06 04:08] LABS: HEMATOCRIT 32.6 % (42-52); MEAN CELL VOLUME 98.5 fL (80-100); MEAN CORPUSCULAR HEMOGLOBIN 33.5 pg (25-34); RED BLOOD COUNT 3.31 M/uL (4.7-6.1); WHITE BLOOD COUNT 7.98 K/uL (4.8-10.8)
[2016-06-06 04:10] LABS: BASO % 0.3 %; BASO ABS # 0.02 K/uL (0-0.2); COMPLETE YES; IG% 0.3 %; LYMPH % 13.3 %; LYMPH ABS # 1.06 K/uL (1.2-3.4); MEAN PLATELET VOLUME 10.5 fL (7.4-10.4); MONO % 8.9 %; NEUT % 74.2 %; PLATELET COUNT 95 K/uL (130-400)
[2016-06-06 04:32] LABS: BUN/CREATININE RATIO 20.2 (10-20); CALCIUM 8.4 mg/dl (8.5-10.1); CREATININE 0.82 mg/dl (0.60-1.40)
[2016-06-06] MEDS: OXYCODONE HCL IR 5 MG TAB (IMMEDIATE RELEASE) PO PRN ×3 (04:32→23:33)
[2016-06-06 04:37] LABS: ALB/GLOB RATIO 0.8 (0.9-2); CKMB/CK RATIO 2.6 (0-3.0)
[2016-06-06] MEDS: SERTRALINE HCL 50 MG TAB PO SCH (08:09)
[2016-06-06] MEDS: SACCHAROMYCES BOUL (FLORASTOR) 250 MG CAP PO SCH (08:09)
[2016-06-06] MEDS: DOXYCYCLINE HYCLATE 100 MG CAP PO SCH ×2 (08:09→21:35)
[2016-06-06] MEDS: CHOLECALCIFEROL 1000 INTER.UNIT TAB PO SCH (08:09)
[2016-06-06] MEDS: RIFAXIMIN TAB 550 MG TAB PO SCH ×2 (08:09→21:34)
[2016-06-06] MEDS: ZINC SULFATE 220 MG CAP PO SCH (08:09)
[2016-06-06] MEDS: PANTOprazole SOD 40 MG TAB PO SCH ×2 (08:10→21:34)
[2016-06-06] MEDS ORDERED: DOCUSATE SODIUM/SENNA 50/8.6MG TAB PO SCH (09:00)
[2016-06-06] MEDS: LACTULOSE SYRUP 20 GM/30 ML UDC PO SCH ×4 (09:23→21:34)
--- NOTE | 2016-06-06 09:56 | Gastroenterology Progress Note ---
Progress Note Date of Service: Jun 06, 2016 Subjective Pt evaluation today including: conversation w/ patient, physical exam, chart review, lab review Pt was seen and evaluated this morning. He has no complaints. He was sitting upright in bed prior to exam finishing his breakfast. He is not wearing his O2, this was re-adjusted for the pt but he later took it off. Pt reports he is compliant with his medications as an outpatient. Today, denies and fever, chills , chest pain, SOB, abdominal pain, black/bloody stools/emesis Review of Systems Constitutional: No chills, No fever Respiratory: + cough Cardiac: No chest pain Abdomen: No GI bleeding, No constipation, No diarrhea, No nausea, No pain, No vomiting Medications Current Inpatient Medications Medications (Trade) Dose Ordered Sig/Arline Route Start Time Stop Time Status Last Admin Dose Admin Ondansetron HCl (Zofran Inj) 4 mg Q6H PRN IV 06/04/16 20:00 07/04/16 19:59 Nitroglycerin (Nitrostat Tab) 0.4 mg UD PRN SL 06/04/16 20:00 07/04/16 19:59 Cholecalciferol (Vitamin D Tab) 1,000 inter.unit DAILY PO 06/05/16 09:00 07/05/16 08:59 06/06/16 08:09 1,000 INTER.UNIT Pramipexole Dihydrochloride (miraPEX TAB) 1 mg HS PO 06/04/16 21:00 07/04/16 20:59 06/05/16 20:20 1 MG Rifaximin (Xifaxan Tab) 550 mg BID PO 06/04/16 21:00 07/04/16 20:59 06/06/16 08:09 550 MG Sertraline HCl (Zoloft Tab) 50 mg QAM PO 06/05/16 09:00 07/05/16 08:59 06/06/16 08:09 50 MG Tramadol HCl (Ultram Tab) 50 mg Q6H PRN PO 06/04/16 20:15 07/04/16 20:14 06/06/16 01:28 50 MG Zinc Sulfate (Zinc Sulfate Cap) 220 mg DAILY PO 06/05/16 09:00 07/05/16 08:59 06/06/16 08:09 220 MG Clonazepam (Klonopin Tab) 0.25 mg HS PRN PO 06/04/16 20:15 07/04/16 20:14 06/05/16 20:23 0.25 MG Saccharomyces Boulardii (Florastor Cap) 250 mg DAILY PO 06/05/16 09:00 07/05/16 08:59 06/06/16 08:09 250 MG Pantoprazole Sodium (Protonix Tab) 40 mg BID PO 06/04/16 21:00 07/04/16 20:59 06/06/16 08:10 40 MG Enteral Nutritional Formula (Boost) 1 can BID@1000,1600 PO 06/05/16 16:00 07/05/16 15:59 06/05/16 16:43 1 CAN Doxycycline Hyclate (Vibramycin Cap) 100 mg BID PO 06/05/16 21:00 06/12/16 20:59 06/06/16 08:09 100 MG Oxycodone HCl (Roxicodone Immediate Rel Tab) 5 mg Q6H PRN PO 06/05/16 20:15 06/19/16 20:14 06/06/16 04:32 5 MG Lactulose (Chronulac Syrup) 20 gm QID PO 06/06/16 09:00 07/06/16 08:59 06/06/16 09:23 20 GM Objective Vital Signs Date Time Temp Pulse Resp B/P Pulse Ox O2 Delivery O2 Flow Rate FiO2 06/06/16 08:00 Room Air 06/06/16 07:53 36.9 73 22 96/49 93 Nasal Cannula 3.0 06/06/16 04:00 37.1 74 21 146/61 91 Room Air 06/06/16 04:00 Room Air 06/05/16 23:59 Room Air 06/05/16 23:41 36.8 67 21 136/59 91 Room Air 06/05/16 20:00 Room Air 06/05/16 19:50 36.8 66 18 167/67 93 Room Air 06/05/16 16:50 Room Air 06/05/16 15:29 36.5 63 18 143/65 92 Room Air 06/05/16 12:00 36.8 66 20 165/72 91 Room Air 06/05/16 12:00 Room Air Physical Exam General Appearance: no apparent distress (pt is sitting upright in bed, he is not wearing his nasal canula ) Eyes: PERRL ENT: hearing grossly normal Neck: supple, trachea midline Respiratory/Chest: no respiratory distress, no accessory muscle use, + decreased breath sounds (decreased at bases), + crackles (crackles, appear to be cleared with cough) Cardiovascular: regular rate, rhythm, no gallop, no JVD Abdomen: normal bowel sounds, non tender, soft, no organomegaly, no pulsatile mass Neurologic/Psych: alert, normal mood/affect, oriented x 3 Skin: no jaundice, warm/dry Laboratory Results Last 24 Hours Test 06/05/16 10:00 06/05/16 22:00 06/06/16 04:00 Ammonia 58.0 umol/L 64.0 umol/L Troponin I 0.042 ng/ml 0.026 ng/ml 0.023 ng/ml Total Creatine Kinase 164 U/L 170 U/L Creatine Kinase MB 5.2 ng/ml 4.5 ng/ml Creatine Kinase MB Ratio 3.2 2.6 White Blood Count 7.98 K/uL Red Blood Count 3.31 M/uL Hemoglobin 11.1 g/dL Hematocrit 32.6 % Mean Corpuscular Volume 98.5 fL Mean Corpuscular Hemoglobin 33.5 pg Mean Corpuscular Hemoglobin Concent 34.0 g/dl Platelet Count 95 K/uL Mean Platelet Volume 10.5 fL Neutrophils (%) (Auto) 74.2 % Lymphocytes (%) (Auto) 13.3 % Monocytes (%) (Auto) 8.9 % Eosinophils (%) (Auto) 3.0 % Basophils (%) (Auto) 0.3 % Neutrophils # (Auto) 5.93 K/uL Lymphocytes # (Auto) 1.06 K/uL Monocytes # (Auto) 0.71 K/uL Eosinophils # (Auto) 0.24 K/uL Basophils # (Auto) 0.02 K/uL RDW Standard Deviation 57.9 fL RDW Coefficient of Variation 16.0 % Immature Granulocyte % (Auto) 0.3 % Immature Granulocyte # (Auto) 0.02 K/uL Sodium Level 145 mmol/L Potassium Level 4.0 mmol/L Chloride Level 111 mmol/L Carbon Dioxide Level 26 mmol/L Anion Gap 8.0 mmol/L Blood Urea Nitrogen 17 mg/dl Creatinine 0.82 mg/dl Est Creatinine Clear Calc Drug Dose 101.9 ml/min Estimated GFR () 108.3 Estimated GFR (Non- 93.5 BUN/Creatinine Ratio 20.2 Random Glucose 119 mg/dl Calcium Level 8.4 mg/dl Total Bilirubin 1.5 mg/dl Aspartate Amino Transf (AST/SGOT) 31 U/L Alanine Aminotransferase (ALT/SGPT) 17 U/L Alkaline Phosphatase 90 U/L Total Protein 5.6 gm/dl Albumin 2.5 gm/dl Globulin 3.1 gm/dl Albumin/Globulin Ratio 0.8 Assessment and Plan Mr. Bridges is a 66-year-old male with history of hep C cirrhosis, mild ascites, esophageal varices and hepatic encephalopathy, who presented to the ED for evaluation of AMS after a fall. On exam today, patient is alert and oriented x 3 , answering questions appropriately and denies any mental fogging Continue Xifaxan 550 mg BID Continue to titrate lactulose to 3-4 BMs daily May hold anxiolytics as appropriate GI ok for diet as tolerated I have seen, examined and agree with the plan as outlined by ZEINAB Martin as above. -exam reveals soft abd -HE has improved, continue current medical regimen.
[2016-06-06] MEDS: BOOST VANILLA PO SCH ×4 (10:00→16:00)
--- NOTE | 2016-06-06 16:09 | Progress Note ---
Internal Med Progress Note Date of Service: Jun 06, 2016. Provider Documentation: SUBJECTIVE: Patient is alert/awake and is sitting in the chair in no apparent distress. He remembers all the events what happened at home. C/O pain in right side of chest and in left elbow. Still feels unsteady on standing & walking. OBJECTIVE: Vital Signs-as noted below Examination: GEN: WNWD, in no acute distress, can answer questions appropriately and is A&O x 3 HEENT: NC/AT, PERRL, mildly jaundiced sclerae CARDIO: reg rate, S1/2 heard without m/g/r LUNGS: B/L Moderate air entry, Clear to auscultation,, no crackles, rales or wheezes, good diaphragmatic excursion ABD: soft, non-tender, non-distended, no rebound or guarding, +BS EXTREMITY: significant changes of skin associated with long-term swelling and edema-woody appearance to skin with dusky hue from erythroderma. NEURO: CN 2-12 intact, sensation intact throughout, no asterixis, no gross focal deficits MUSC: 5/5 strength throughout, no focal deficits SKIN: warm and dry and LE skin changes as above. Lab data as noted below. ASSESSMENT & PLAN: Echocardiogram (06/05/2016) The left ventricle is normal in size. There is normal left ventricular wall thickness. The left ventricular wall motion is normal. Ejection Fraction = 60-65%. There is trace mitral regurgitation. There is trace tricuspid regurgitation. There is no pericardial effusion. Elevated Troponin: Clinically & hemodynamically stable. Likely Troponin leak. No acute cardiac symptoms. -Troponin trend is 0.07 --> 0.04. -Reviewed findings of Echo. Encephalopathy--Improving. Etiologies include dehydration, hepatic encephalopathy,hypernatremia and drug reaction from Ativan earlier in the ER. -Holding diuretics and encourage PO intake. -Ammonia is elevated ( 66 --> 58-->64). -Continue lactulose -Fall precautions -Urine Tox screen is negative -Started PT/OT Right Sided Rib fractures: Due to fall. No pneumothorax on Chest X-Ray. . -Cont supportive care with pain control. - IS at bedside, encourage ambulation with assistance. Hypernatremia: Due to dehydration -Continue monitoring Cirrhosis-no evidence of ascites on exam today. Ammonia is elevated and some encephalopathy is present. No asterixis on exam. -Cont monitoring lactulose intake and bowel movements to titrate to three per day. -Cont Rifaximin. Consult GI for recs Thrombocytopenia-around baseline likely due to liver cirrhosis DVT Prophylaxis: SCDs, Code Status: Full Code Disposition: Pending PT/OT evals and improvement in mental status may need Rehab due to Ambulatory dysfunction. Vital Signs: Date Time Temp Pulse Resp B/P Pulse Ox O2 Delivery O2 Flow Rate FiO2 06/06/16 15:22 36.6 64 21 153/79 97 Nasal Cannula 3.0 06/06/16 13:15 36.6 63 22 132/72 95 Nasal Cannula 3.0 06/06/16 12:00 Room Air 06/06/16 09:56 151/67 06/06/16 08:00 Room Air 06/06/16 07:53 36.9 73 22 96/49 93 Nasal Cannula 3.0 06/06/16 04:00 37.1 74 21 146/61 91 Room Air 06/06/16 04:00 Room Air 06/05/16 23:59 Room Air 06/05/16 23:41 36.8 67 21 136/59 91 Room Air 06/05/16 20:00 Room Air 06/05/16 19:50 36.8 66 18 167/67 93 Room Air 06/05/16 16:50 Room Air Lab Results: Results Past 24 Hours Test 06/05/16 22:00 06/06/16 04:00 Range/Units Total Creatine Kinase 164 170 39-308 U/L Creatine Kinase MB 5.2 4.5 0.5-3.6 ng/ml Creatine Kinase MB Ratio 3.2 2.6 0-3.0 Troponin I 0.026 0.023 0-0.045 ng/ml White Blood Count 7.98 4.8-10.8 K/uL Red Blood Count 3.31 4.7-6.1 M/uL Hemoglobin 11.1 14.0-18.0 g/dL Hematocrit 32.6 42-52 % Mean Corpuscular Volume 98.5 80-100 fL Mean Corpuscular Hemoglobin 33.5 25-34 pg Mean Corpuscular Hemoglobin Concent 34.0 32-36 g/dl Platelet Count 95 130-400 K/uL Mean Platelet Volume 10.5 7.4-10.4 fL Neutrophils (%) (Auto) 74.2 % Lymphocytes (%) (Auto) 13.3 % Monocytes (%) (Auto) 8.9 % Eosinophils (%) (Auto) 3.0 % Basophils (%) (Auto) 0.3 % Neutrophils # (Auto) 5.93 1.4-6.5 K/uL Lymphocytes # (Auto) 1.06 1.2-3.4 K/uL Monocytes # (Auto) 0.71 0.11-0.59 K/uL Eosinophils # (Auto) 0.24 0-0.5 K/uL Basophils # (Auto) 0.02 0-0.2 K/uL RDW Standard Deviation 57.9 36.4-46.3 fL RDW Coefficient of Variation 16.0 11.5-14.5 % Immature Granulocyte % (Auto) 0.3 % Immature Granulocyte # (Auto) 0.02 0.00-0.02 K/uL Sodium Level 145 136-145 mmol/L Potassium Level 4.0 3.5-5.1 mmol/L Chloride Level 111 98-107 mmol/L Carbon Dioxide Level 26 21-32 mmol/L Anion Gap 8.0 3-11 mmol/L Blood Urea Nitrogen 17 7-18 mg/dl Creatinine 0.82 0.60-1.40 mg/dl Est Creatinine Clear Calc Drug Dose 101.9 ml/min Estimated GFR () 108.3 Estimated GFR (Non- 93.5 BUN/Creatinine Ratio 20.2 10-20 Random Glucose 119 70-99 mg/dl Calcium Level 8.4 8.5-10.1 mg/dl Total Bilirubin 1.5 0.2-1 mg/dl Aspartate Amino Transf (AST/SGOT) 31 15-37 U/L Alanine Aminotransferase (ALT/SGPT) 17 12-78 U/L Alkaline Phosphatase 90 45-117 U/L Ammonia 64.0 11-32 umol/L Total Protein 5.6 6.4-8.2 gm/dl Albumin 2.5 3.4-5.0 gm/dl Globulin 3.1 2.5-4.0 gm/dl Albumin/Globulin Ratio 0.8 0.9-2
[2016-06-06] MEDS ORDERED: OXYCODONE HCL IR 5 MG TAB (IMMEDIATE RELEASE) PO PRN (16:15)
[2016-06-06] MEDS: PRAMIPEXOLE DIHYDROCHLORIDE 0.5 MG TAB PO SCH (21:35)
[2016-06-07] MEDS: ONDANSETRON INJ 2 MG/ML 2 ML VIAL IV PRN ×2 (01:07→08:45)
[2016-06-07 07:00] VITALS: BP 131/70; PULSE 69; TEMP 36.8; O2SAT 95
[2016-06-07 07:02] LABS: BASO % 0.3 %; BASO ABS # 0.02 K/uL (0-0.2); COMPLETE YES; EOS % 2.9 %; HEMATOCRIT 33.8 % (42-52); IG% 0.3 %; LYMPH % 14.8 %; LYMPH ABS # 1.08 K/uL (1.2-3.4); MEAN CELL VOLUME 99.1 fL (80-100); MEAN CORPUSCULAR HEMOGLOBIN 34.3 pg (25-34); MEAN CORPUSCULAR HGB CONC 34.6 g/dl (32-36); MEAN PLATELET VOLUME 10.4 fL (7.4-10.4); MONO % 8.4 %; NEUT % 73.3 %; PLATELET COUNT 100 K/uL (130-400); RED BLOOD COUNT 3.41 M/uL (4.7-6.1); WHITE BLOOD COUNT 7.29 K/uL (4.8-10.8)
[2016-06-07 07:22] LABS: BUN/CREATININE RATIO 18.9 (10-20); CALCIUM 8.4 mg/dl (8.5-10.1); CREATININE 0.72 mg/dl (0.60-1.40); POTASSIUM 3.8 mmol/L (3.5-5.1)
[2016-06-07 07:24] VITALS: BP 122/67; PULSE 72; TEMP 36.7; O2SAT 92
[2016-06-07 07:25] LABS: ALB/GLOB RATIO 0.7 (0.9-2)
[2016-06-07] MEDS: LACTULOSE SYRUP 20 GM/30 ML UDC PO SCH ×4 (08:30→20:55)
[2016-06-07] MEDS: ZINC SULFATE 220 MG CAP PO SCH (08:31)
[2016-06-07] MEDS: SERTRALINE HCL 50 MG TAB PO SCH (08:31)
[2016-06-07] MEDS: SACCHAROMYCES BOUL (FLORASTOR) 250 MG CAP PO SCH (08:31)
[2016-06-07] MEDS: CHOLECALCIFEROL 1000 INTER.UNIT TAB PO SCH (08:31)
[2016-06-07] MEDS: RIFAXIMIN TAB 550 MG TAB PO SCH ×2 (08:31→20:56)
[2016-06-07] MEDS: PANTOprazole SOD 40 MG TAB PO SCH ×2 (08:31→20:57)
[2016-06-07] MEDS: DOXYCYCLINE HYCLATE 100 MG CAP PO SCH ×2 (08:31→20:58)
--- NOTE | 2016-06-07 10:39 | Progress Note ---
Medicine Progress Note Date & Time of Visit: Jun 07, 2016 at 10:26. Subjective patient seen resting in bed, comfortable oriented x 3 had some nausea this am denies abdominal pain no shortness of breath, dizziness no other symptoms states he prefers to go home Objective Last 8 Hrs Date Time Temp Pulse Resp B/P Pulse Ox O2 Delivery O2 Flow Rate FiO2 06/07/16 07:24 36.7 72 16 122/67 92 Room Air 06/07/16 07:00 36.8 69 16 131/70 95 Room Air Physical Exam: General- oriented x 3, not in distress, speaks in sentences with no effort Eyes-EOMI, anicteric Neck- supple, no JVD Lungs- clear breath sounds bilaterally Heart- normal rate, regular rhythm; no murmurs Abdomen- normal bowel sounds, soft, nontender Extremities- grade 1 lower leg edema- no tenderness Left upper extremity: mild edema on the upper arm, moderate edema on the forearm, mild erythema on the elbow, no tenderness, mild warmth Neuro- alert, oriented x 3; no gross deficits Skin- warm & dry Laboratory Results: Last 24 Hours Test 06/07/16 06:49 White Blood Count 7.29 K/uL Red Blood Count 3.41 M/uL Hemoglobin 11.7 g/dL Hematocrit 33.8 % Mean Corpuscular Volume 99.1 fL Mean Corpuscular Hemoglobin 34.3 pg Mean Corpuscular Hemoglobin Concent 34.6 g/dl Platelet Count 100 K/uL Mean Platelet Volume 10.4 fL Neutrophils (%) (Auto) 73.3 % Lymphocytes (%) (Auto) 14.8 % Monocytes (%) (Auto) 8.4 % Eosinophils (%) (Auto) 2.9 % Basophils (%) (Auto) 0.3 % Neutrophils # (Auto) 5.35 K/uL Lymphocytes # (Auto) 1.08 K/uL Monocytes # (Auto) 0.61 K/uL Eosinophils # (Auto) 0.21 K/uL Basophils # (Auto) 0.02 K/uL RDW Standard Deviation 57.5 fL RDW Coefficient of Variation 15.9 % Immature Granulocyte % (Auto) 0.3 % Immature Granulocyte # (Auto) 0.02 K/uL Sodium Level 144 mmol/L Potassium Level 3.8 mmol/L Chloride Level 112 mmol/L Carbon Dioxide Level 25 mmol/L Anion Gap 7.0 mmol/L Blood Urea Nitrogen 14 mg/dl Creatinine 0.72 mg/dl Est Creatinine Clear Calc Drug Dose 116.1 ml/min Estimated GFR () 114.3 Estimated GFR (Non- 98.6 BUN/Creatinine Ratio 18.9 Random Glucose 119 mg/dl Calcium Level 8.4 mg/dl Total Bilirubin 1.3 mg/dl Aspartate Amino Transf (AST/SGOT) 29 U/L Alanine Aminotransferase (ALT/SGPT) 16 U/L Alkaline Phosphatase 91 U/L Ammonia 60.0 umol/L Total Protein 5.8 gm/dl Albumin 2.4 gm/dl Globulin 3.4 gm/dl Albumin/Globulin Ratio 0.7 Assessment & Plan 66 year old male with history of Cirrhosis, Ascites, Hep C presenting with fall. Encephalopathy--Improved - Etiologies include dehydration, hepatic encephalopathy,hypernatremia and drug reaction from Ativan earlier in the ER. - oriented x3 , answers questions appropriately although ammonia still elevated at 60s - continue Lactulose + Rifaximin hold Amiloride, resume lower dose Lasix 40 daily appreciate GI consult patient will benefit from acute rehab per PT/OT, patient declining Right Sided Rib fractures: Due to fall. No pneumothorax on Chest X-Ray. . - IS - PT/OT Left Arm Edema - r/o DVT on Doxycycline for possible cellulitis Elevated Troponin: Likely Troponin leak. -Troponin trend is 0.07 --> 0.04. -Reviewed findings of Echo. 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 Current Inpatient Medications: Current Inpatient Medications Medications (Trade) Dose Ordered Sig/Arline Route Start Time Stop Time Status Last Admin Dose Admin Ondansetron HCl (Zofran Inj) 4 mg Q6H PRN IV 06/04/16 20:00 07/04/16 19:59 06/07/16 08:45 4 MG Nitroglycerin (Nitrostat Tab) 0.4 mg UD PRN SL 06/04/16 20:00 07/04/16 19:59 Cholecalciferol (Vitamin D Tab) 1,000 inter.unit DAILY PO 06/05/16 09:00 07/05/16 08:59 06/07/16 08:31 1,000 INTER.UNIT Pramipexole Dihydrochloride (miraPEX TAB) 1 mg HS PO 06/04/16 21:00 07/04/16 20:59 06/06/16 21:35 1 MG Rifaximin (Xifaxan Tab) 550 mg BID PO 06/04/16 21:00 07/04/16 20:59 06/07/16 08:31 550 MG Sertraline HCl (Zoloft Tab) 50 mg QAM PO 06/05/16 09:00 07/05/16 08:59 06/07/16 08:31 50 MG Tramadol HCl (Ultram Tab) 50 mg Q6H PRN PO 06/04/16 20:15 07/04/16 20:14 06/06/16 17:30 50 MG Zinc Sulfate (Zinc Sulfate Cap) 220 mg DAILY PO 06/05/16 09:00 07/05/16 08:59 06/07/16 08:31 220 MG Clonazepam (Klonopin Tab) 0.25 mg HS PRN PO 06/04/16 20:15 07/04/16 20:14 06/05/16 20:23 0.25 MG Saccharomyces Boulardii (Florastor Cap) 250 mg DAILY PO 06/05/16 09:00 07/05/16 08:59 06/07/16 08:31 250 MG Pantoprazole Sodium (Protonix Tab) 40 mg BID PO 06/04/16 21:00 07/04/16 20:59 06/07/16 08:31 40 MG Enteral Nutritional Formula (Boost) 1 can BID@1000,1600 PO 06/05/16 16:00 07/05/16 15:59 06/06/16 10:00 1 CAN Doxycycline Hyclate (Vibramycin Cap) 100 mg BID PO 06/05/16 21:00 06/12/16 20:59 06/07/16 08:31 100 MG Oxycodone HCl (Roxicodone Immediate Rel Tab) 5 mg Q6H PRN PO 06/05/16 20:15 06/19/16 20:14 06/06/16 23:33 5 MG Lactulose (Chronulac Syrup) 20 gm QID PO 06/06/16 09:00 07/06/16 08:59 06/07/16 08:30 20 GM
[2016-06-07] MEDS: BOOST VANILLA PO SCH ×2 (10:48)
[2016-06-07] MEDS ORDERED: FUROSEMIDE 40 MG TAB PO ONE (11:00)
--- NOTE | 2016-06-07 11:21 | Gastroenterology Progress Note ---
Progress Note Date of Service: Jun 07, 2016 Subjective Pt evaluation today including: conversation w/ patient, physical exam, chart review, lab review Pt was seen and examined this morning. Prior to exam, he was on the phone with his sister. Appears to be mentating well. He is alert and oriented x 3. Able to answer questions appropriately. He denies any complaints. He wants to go home. Had a BM this morning, no black to blood stools. No fever, chills, chest pain, SOB, abdominal pain or evidence of GI bleeding. Review of Systems Constitutional: No chills, No fever Respiratory: No cough, No shortness of breath Cardiac: No chest pain, No edema Abdomen: No GI bleeding, No constipation, No diarrhea, No nausea, No pain, No vomiting Medications Current Inpatient Medications Medications (Trade) Dose Ordered Sig/Arline Route Start Time Stop Time Status Last Admin Dose Admin Ondansetron HCl (Zofran Inj) 4 mg Q6H PRN IV 06/04/16 20:00 07/04/16 19:59 06/07/16 08:45 4 MG Nitroglycerin (Nitrostat Tab) 0.4 mg UD PRN SL 06/04/16 20:00 07/04/16 19:59 Cholecalciferol (Vitamin D Tab) 1,000 inter.unit DAILY PO 06/05/16 09:00 07/05/16 08:59 06/07/16 08:31 1,000 INTER.UNIT Pramipexole Dihydrochloride (miraPEX TAB) 1 mg HS PO 06/04/16 21:00 07/04/16 20:59 06/06/16 21:35 1 MG Rifaximin (Xifaxan Tab) 550 mg BID PO 06/04/16 21:00 07/04/16 20:59 06/07/16 08:31 550 MG Sertraline HCl (Zoloft Tab) 50 mg QAM PO 06/05/16 09:00 07/05/16 08:59 06/07/16 08:31 50 MG Tramadol HCl (Ultram Tab) 50 mg Q6H PRN PO 06/04/16 20:15 07/04/16 20:14 06/06/16 17:30 50 MG Zinc Sulfate (Zinc Sulfate Cap) 220 mg DAILY PO 06/05/16 09:00 07/05/16 08:59 06/07/16 08:31 220 MG Clonazepam (Klonopin Tab) 0.25 mg HS PRN PO 06/04/16 20:15 07/04/16 20:14 06/05/16 20:23 0.25 MG Saccharomyces Boulardii (Florastor Cap) 250 mg DAILY PO 06/05/16 09:00 07/05/16 08:59 06/07/16 08:31 250 MG Pantoprazole Sodium (Protonix Tab) 40 mg BID PO 06/04/16 21:00 07/04/16 20:59 06/07/16 08:31 40 MG Enteral Nutritional Formula (Boost) 1 can BID@1000,1600 PO 06/05/16 16:00 07/05/16 15:59 06/07/16 10:48 1 CAN Doxycycline Hyclate (Vibramycin Cap) 100 mg BID PO 06/05/16 21:00 06/12/16 20:59 06/07/16 08:31 100 MG Oxycodone HCl (Roxicodone Immediate Rel Tab) 5 mg Q6H PRN PO 06/05/16 20:15 06/19/16 20:14 06/06/16 23:33 5 MG Lactulose (Chronulac Syrup) 20 gm QID PO 06/06/16 09:00 07/06/16 08:59 06/07/16 08:30 20 GM Furosemide (Lasix Tab) 40 mg QAM PO 06/08/16 09:00 07/08/16 08:59 Objective Vital Signs Date Time Temp Pulse Resp B/P Pulse Ox O2 Delivery O2 Flow Rate FiO2 06/07/16 07:24 36.7 72 16 122/67 92 Room Air 06/07/16 07:00 36.8 69 16 131/70 95 Room Air 06/06/16 23:38 Room Air 06/06/16 23:20 36.6 67 18 120/68 91 Room Air 06/06/16 21:30 94 Room Air 06/06/16 17:00 Room Air 06/06/16 16:57 36.6 64 21 97 3.0 06/06/16 16:00 Room Air 06/06/16 15:22 36.6 64 21 153/79 97 Nasal Cannula 3.0 06/06/16 13:15 36.6 63 22 132/72 95 Nasal Cannula 3.0 06/06/16 12:00 Room Air Physical Exam General Appearance: no apparent distress Eyes: PERRL ENT: hearing grossly normal Neck: supple Respiratory/Chest: lungs clear, normal breath sounds, no respiratory distress Cardiovascular: regular rate, rhythm, no edema, no gallop Abdomen: normal bowel sounds, non tender, soft, no organomegaly Neurologic/Psych: alert, normal mood/affect, oriented x 3 Skin: normal color, no jaundice, warm/dry Laboratory Results Last 24 Hours Test 06/07/16 06:49 White Blood Count 7.29 K/uL Red Blood Count 3.41 M/uL Hemoglobin 11.7 g/dL Hematocrit 33.8 % Mean Corpuscular Volume 99.1 fL Mean Corpuscular Hemoglobin 34.3 pg Mean Corpuscular Hemoglobin Concent 34.6 g/dl Platelet Count 100 K/uL Mean Platelet Volume 10.4 fL Neutrophils (%) (Auto) 73.3 % Lymphocytes (%) (Auto) 14.8 % Monocytes (%) (Auto) 8.4 % Eosinophils (%) (Auto) 2.9 % Basophils (%) (Auto) 0.3 % Neutrophils # (Auto) 5.35 K/uL Lymphocytes # (Auto) 1.08 K/uL Monocytes # (Auto) 0.61 K/uL Eosinophils # (Auto) 0.21 K/uL Basophils # (Auto) 0.02 K/uL RDW Standard Deviation 57.5 fL RDW Coefficient of Variation 15.9 % Immature Granulocyte % (Auto) 0.3 % Immature Granulocyte # (Auto) 0.02 K/uL Sodium Level 144 mmol/L Potassium Level 3.8 mmol/L Chloride Level 112 mmol/L Carbon Dioxide Level 25 mmol/L Anion Gap 7.0 mmol/L Blood Urea Nitrogen 14 mg/dl Creatinine 0.72 mg/dl Est Creatinine Clear Calc Drug Dose 116.1 ml/min Estimated GFR () 114.3 Estimated GFR (Non- 98.6 BUN/Creatinine Ratio 18.9 Random Glucose 119 mg/dl Calcium Level 8.4 mg/dl Total Bilirubin 1.3 mg/dl Aspartate Amino Transf (AST/SGOT) 29 U/L Alanine Aminotransferase (ALT/SGPT) 16 U/L Alkaline Phosphatase 91 U/L Ammonia 60.0 umol/L Total Protein 5.8 gm/dl Albumin 2.4 gm/dl Globulin 3.4 gm/dl Albumin/Globulin Ratio 0.7 Assessment and Plan Mr. Bridges is a 66-year-old male with history of hep C cirrhosis, mild ascites, esophageal varices and hepatic encephalopathy, who presented to the ED for evaluation of AMS after a fall. On exam today, patient is alert and oriented x 3 , answering questions appropriately and denies any mental fogging. He states he is ready to go home. Is supposed to see PT prior to discharge. Continue Xifaxan 550 mg BID Continue to titrate lactulose to 3-4 BMs daily May hold anxiolytics as appropriate GI ok for diet as tolerated GI to sign off. No GI contraindications to discharge. I have seen, examined and agree with the plan as outlined by ZEINAB Martin as above. -exam reveals soft abd -improved confusion, being evaluated by PT
--- NOTE | 2016-06-07 14:17 | DIAGNOSTIC IMAGING REPORT ---
LEFT UPPER EXTREMITY VENOUS DOPPLER ULTRASOUND CLINICAL HISTORY: Encephalopathy. COMPARISON STUDY: No previous studies for comparison. FINDINGS: The left internal jugular, subclavian, axillary, brachial, basilic, radial and ulnar veins were patent. IMPRESSION: No deep venous thrombus within the left upper extremity. Electronically signed by: Rayshawn Bean M.D. 06/07/2016 2:15 PM Dictated Date/Time: 06/07/2016 2:14 PM
[2016-06-07 15:40] VITALS: BP 146/62; PULSE 66; TEMP 36.7; O2SAT 93
[2016-06-07] MEDS: TRAMADOL HCL 50 MG TAB PO PRN (16:07)
[2016-06-07] MEDS ORDERED: NURSING VERBAL MED ORDER ONE (18:15)
[2016-06-07] MEDS: PRAMIPEXOLE DIHYDROCHLORIDE 0.5 MG TAB PO SCH (20:56)
[2016-06-07 23:07] VITALS: BP 124/58; PULSE 66; TEMP 36.7; O2SAT 92
[2016-06-07 23:09] VITALS: BP 122/57; PULSE 70; O2SAT 91
[2016-06-07 23:11] VITALS: BP 126/59; PULSE 70; O2SAT 92
[2016-06-08] MEDS: OXYCODONE HCL IR 5 MG TAB (IMMEDIATE RELEASE) PO PRN ×2 (00:33→11:54)
[2016-06-08 07:22] VITALS: BP_SYST 132; BP_SYST 135; BP_SYST 143; BP_DIAS 59; BP_DIAS 64; BP_DIAS 67; PULSE 66; O2SAT 92
[2016-06-08] MEDS: LACTULOSE SYRUP 20 GM/30 ML UDC PO SCH ×2 (09:00→12:35)
[2016-06-08] MEDS ORDERED: FUROSEMIDE 40 MG TAB PO SCH (09:00)
[2016-06-08] MEDS: PANTOprazole SOD 40 MG TAB PO SCH (09:10)
[2016-06-08] MEDS: RIFAXIMIN TAB 550 MG TAB PO SCH (09:10)
[2016-06-08] MEDS: BOOST VANILLA PO SCH ×4 (09:10→16:00)
[2016-06-08] MEDS: CHOLECALCIFEROL 1000 INTER.UNIT TAB PO SCH (09:10)
[2016-06-08] MEDS: SACCHAROMYCES BOUL (FLORASTOR) 250 MG CAP PO SCH (09:10)
[2016-06-08] MEDS: SERTRALINE HCL 50 MG TAB PO SCH (09:10)
[2016-06-08] MEDS: ZINC SULFATE 220 MG CAP PO SCH (09:10)
[2016-06-08] MEDS: DOXYCYCLINE HYCLATE 100 MG CAP PO SCH (09:10)
[2016-06-08 15:08] VITALS: BP 132/67; PULSE 68; O2SAT 94
--- NOTE | 2016-06-08 15:31 | Progress Note ---
Medicine Progress Note Date & Time of Visit: Jun 08, 2016 at 15:17. Subjective patient seen resting in bed, comfortable states he feels fine overall, back to baseline denies dizziness, dyspnea, chest pain no confusion no other symptoms states he is ready and would like to be discharged today declines Rehab stay, discussed at length with patient including benefits of rehab he accepts the risks of not going for inpatient rehab including falls, injuries , etc. he is agreeable with home health with PT Objective Last 8 Hrs Date Time Temp Pulse Resp B/P Pulse Ox O2 Delivery O2 Flow Rate FiO2 06/08/16 15:08 68 16 132/67 94 Room Air 06/08/16 08:02 Room Air 06/08/16 07:22 66 135/64 92 Room Air 132/59 143/67 Physical Exam: General- oriented x 3, not in distress, speaks in sentences with no effort Eyes- anicteric Neck- no JVD Lungs- clear breath sounds bilaterally, no rales/wheezes Heart- normal rate, regular rhythm; no murmurs Abdomen- normal bowel sounds, soft, nontender, non distended Extremities- grade 1 lower leg edema- no tenderness/erythema/warmth, improving Left upper extremity: mild edema on the upper arm, moderate edema on the forearm, mild erythema on the elbow, no tenderness, mild warmth Neuro- alert, oriented x 3; no gross deficits Skin- warm & dry Assessment & Plan 66 year old male with history of Cirrhosis, Ascites, Hep C presenting with fall. Encephalopathy, Resolved - Etiologies include dehydration, hepatic encephalopathy,hypernatremia - ammonia 66 on admission, Na 147 - GI consulted - Lactulose increased, Rifaximin continued Lasix and Amiloride held - improved, back to baseline - discharge plan: increase Lactulose to 20gm QID (goal: 3-4 BM/day) continue Rifaximin decrease Lasix to 40mg BID hold Amiloride - d/c home with home health and PT patient declines inpatient Rehab monitor Right Sided Rib fractures: Due to fall. CXR: 1. Right 10th and 11th rib fractures. No evidence of pneumothorax. 2. Basilar interstitial thickening, slightly progressive when compared the prior 2016 study. No pneumothorax on Chest X-Ray. . - continue incentive spirometry Left Elbow Bursitis improving continue Doxycycline PO Doppler US negative for DVT Elevated Troponin: Likely Troponin leak. -Troponin trend is 0.07 --> 0.04. - Echo: The left ventricle is normal in size. * There is normal left ventricular wall thickness. * The left ventricular wall motion is normal. * Ejection Fraction = 60-65%. * There is trace mitral regurgitation. * There is trace tricuspid regurgitation. * There is no pericardial effusion. - no Cardiac symptoms Hypernatremia Due to dehydration 148 improved to 144 Lasix lowered to 40mg BID Amiloride held monitor as outpatient Cirrhosis presented with dehydration discharge plan: Lasix lowered to 40mg BID hold Amiloride held increase Lactulose to 20gm QID continue Rifaximin ff up with GI as outpatient Thrombocytopenia Plt 100 around baseline likely due to liver cirrhosis DVT Prophylaxis: SCDs given Disposition: patient would prefer to go home with home health and PT ff up with PCP in 1 week ff up with GI as scheduled Current Inpatient Medications: Current Inpatient Medications Medications (Trade) Dose Ordered Sig/Arline Route Start Time Stop Time Status Last Admin Dose Admin Ondansetron HCl (Zofran Inj) 4 mg Q6H PRN IV 06/04/16 20:00 07/04/16 19:59 06/07/16 08:45 4 MG Nitroglycerin (Nitrostat Tab) 0.4 mg UD PRN SL 06/04/16 20:00 07/04/16 19:59 Cholecalciferol (Vitamin D Tab) 1,000 inter.unit DAILY PO 06/05/16 09:00 07/05/16 08:59 06/08/16 09:10 1,000 INTER.UNIT Pramipexole Dihydrochloride (miraPEX TAB) 1 mg HS PO 06/04/16 21:00 07/04/16 20:59 06/07/16 20:56 1 MG Rifaximin (Xifaxan Tab) 550 mg BID PO 06/04/16 21:00 07/04/16 20:59 06/08/16 09:10 550 MG Sertraline HCl (Zoloft Tab) 50 mg QAM PO 06/05/16 09:00 07/05/16 08:59 06/08/16 09:10 50 MG Tramadol HCl (Ultram Tab) 50 mg Q6H PRN PO 06/04/16 20:15 07/04/16 20:14 06/07/16 16:07 50 MG Zinc Sulfate (Zinc Sulfate Cap) 220 mg DAILY PO 06/05/16 09:00 07/05/16 08:59 06/08/16 09:10 220 MG Clonazepam (Klonopin Tab) 0.25 mg HS PRN PO 06/04/16 20:15 07/04/16 20:14 06/05/16 20:23 0.25 MG Saccharomyces Boulardii (Florastor Cap) 250 mg DAILY PO 06/05/16 09:00 07/05/16 08:59 06/08/16 09:10 250 MG Pantoprazole Sodium (Protonix Tab) 40 mg BID PO 06/04/16 21:00 07/04/16 20:59 06/08/16 09:10 40 MG Doxycycline Hyclate (Vibramycin Cap) 100 mg BID PO 06/05/16 21:00 06/12/16 20:59 06/08/16 09:10 100 MG Oxycodone HCl (Roxicodone Immediate Rel Tab) 5 mg Q6H PRN PO 06/05/16 20:15 06/19/16 20:14 06/08/16 11:54 5 MG Lactulose (Chronulac Syrup) 20 gm QID PO 06/06/16 09:00 07/06/16 08:59 06/07/16 20:55 20 GM Furosemide (Lasix Tab) 40 mg QAM PO 06/08/16 09:00 07/08/16 08:59 06/08/16 09:10 40 MG Enteral Nutritional Formula (Boost) 1 can BID@1000,1600 PO 06/08/16 10:00 07/08/16 09:59 06/08/16 09:10 1 CAN
[2016-06-08] MEDS ORDERED: Enteral Nutrition Formula PO (15:39)
[2016-06-08] MEDS ORDERED: FRS/40 PO (15:39)
[2016-06-08] MEDS ORDERED: LCTL30 PO (15:39)
[2016-06-08] MEDS ORDERED: DOXY100C76 PO (15:39)
--- NOTE | 2016-06-08 15:46 | Discharge Instructions ---
Discharge Instructions Date of Service Jun 08, 2016. Admission Reason for Admission: Encephalopathy, Unspecified Discharge Discharge Diagnosis / Problem: Encephalopathy Discharge Goals Goal(s): Diagnostic testing, Therapeutic intervention Activity Recommendations Activity Limitations: as noted below (no heavy exertion until re-evaluated by Primary Care Physician) Driving or Machine Use: NO driving until re-evaluated by Primary Care Physician . Instructions / Follow-Up Instructions / Follow-Up PLEASE REVIEW YOUR NEW MEDICATION LIST AND FOLLOW INSTRUCTIONS CAREFULLY. RESUME AMILORIDE IF WITH INCREASING LEG OR ABDOMINAL SWELLING. THEN CALL DR. KABA OR DR. LY IMMEDIATELY. CALL PRIMARY CARE PHYSICIAN OR RETURN TO ER IMMEDIATELY IF WITH RECURRENCE OF SYMPTOMS, INCREASING LEG/ARM SWELLING, SHORTNESS OF BREATH, WEAKNESS, FEVER/CHILLS. USE INCENTIVE SPIROMETRY EVERY DAY. FOLLOW UP WITH DR. KABA ON Monday06/13/16 AT 11:05AM. FOLLOW UP WITH LINE LOCATOR DR. LY SCHEDULED. Current Hospital Diet Patient's current hospital diet: Low Sodium Diet (2gm Na) Discharge Diet Recommended Diet: Low Sodium Diet (2gm Na) Fluid Restriction: 1500 ml (6 cups) Pending Studies Studies pending at discharge: yes List of pending studies: REPEAT BLOOD WORK: PARTIAL RENAL PROFILE Medical Emergencies . Who to Call and When: Medical Emergencies: If at any time you feel your situation is an emergency, please call 911 immediately. . Non-Emergent Contact Non-Emergency issues call your: Primary Care Provider Call Non-Emergent contact if: you have a fever, your pain is not controlled, wound has increased drainage, wound has increased redness, wound has increased pain, you have any medication questions . Past History Medical & Surgical History: (1) Anemia (2) Chronic hepatitis C (3) Cirrhosis of liver (4) Esophageal varices (5) Hernia repair (6) History of - schizophrenia (7) Uboyu-Ztxobrmfo-Jghsy pattern (8) Hyponatremia (9) Back pain (10) Generalized weakness (11) Hyponatremia (12) Hyperkalemia (13) Generalized weakness (14) Confusion (15) Acute renal failure (16) Depressed affect (17) Increased ammonia level (18) Hepatic encephalopathy (19) Cellulitis of left forearm (20) ENCEPHALOPATHY, UNSPECIFIED (21) Rib fractures (22) Falls (23) Elevated troponin I level . "Provider Documentation" section prepared by Arnol Hoover. VTE Core Measure Inpt VTE Proph given/why not?: SCD's, Contraindicated
[2016-06-08] MEDS ORDERED: CLON0.252 PO (15:53)
--- NOTE | 2016-06-08 15:54 | Discharge Summary ---
Discharge Summary Date of Service Jun 08, 2016. Discharge Summary Admission Date: Jun 04, 2016 at 19:55 Discharge Date: Jun 08, 2016 Discharge Disposition: Home with services Principal Diagnosis: Encephalopathy, Resolved Secondary Diagnoses/Problems: Please refer to hospital course below. Procedures: RIGHT RIBS UNILATERAL WITH PA CHEST CLINICAL HISTORY: Right rib pain status post trauma COMPARISON STUDY: Chest x-ray dated 10/22/2015 FINDINGS: The cardiac and mediastinal contours remain stable. The heart is mildly enlarged. There is persistent interstitial thickening which is perhaps slightly progressive. There is no pneumothorax. There are fractures of the right 10th and 11th ribs. IMPRESSION: 1. Right 10th and 11th rib fractures. No evidence of pneumothorax. 2. Basilar interstitial thickening, slightly progressive when compared the prior 2016 study LEFT UPPER EXTREMITY VENOUS DOPPLER ULTRASOUND CLINICAL HISTORY: Encephalopathy. COMPARISON STUDY: No previous studies for comparison. FINDINGS: The left internal jugular, subclavian, axillary, brachial, basilic, radial and ulnar veins were patent. IMPRESSION: No deep venous thrombus within the left upper extremity. Consultations: GASTROENTEROLOGY DR. LOCKHART Pending Studies/Follow-Up: LASIX DECREASED AND AMILORIDE HELD FOR DEHYDRATION; PLEASE REFER TO HOSPITAL COURSE BELOW FOR FURTHER DETAILS. Medication Reconciliation New Medications: Lactulose (Lactulose) 20 Gm/30 Ml Syrp 20 GM PO QID for 30 Days hold if with 3-4 Bowel Movements/day, then resume the next day [Enteral Nutrition Formula] () 1 CAN LIQD 1 CAN PO BID@1000,1600 for 30 Days, #60 BTL 2 Refills Changed Medications: Clonazepam (Clonazepam Odt) 0.25 Mg Tab 0.25 MG PO HS PRN for ANXIETY MDD 10 for 10 Days (Medication details modified) Furosemide (Lasix) 40 Mg Tab 40 MG PO BID for 30 Days (Changed from: 80 MG) Continued Medications: Cholecalciferol (Vitamin D3) 1,000 Unit Tab 1000 UNIT PO DAILY, 3 Refills Doxycycline Monohydrate (Monodox) 100 Mg Cap 100 MG PO BID for 10 Days, #20 CAP (This prescription has been renewed) Nutritional Supplements (Colon Formula) 1 Cap Cap 1 CAP PO DAILY Omeprazole (Prilosec) 20 Mg Cap 20 MG PO QPM, CAP takes late afternoon Omeprazole (Prilosec) 20 Mg Capcr 40 MG PO QAM, CAP Ondansetron Hcl (Zofran) 4 Mg Tab 4 MG PO Q8H PRN for Nausea Pramipexole Dihydrochloride (Mirapex) 0.5 Mg Tab 1 MG PO HS Rifaximin (Xifaxan) 550 Mg Tab 550 MG PO BID Sertraline HCl (Sertraline HCl) 50 Mg Tab 50 MG PO QAM Tramadol (Ultram) 50 Mg Tab 50 MG PO Q6H PRN for Pain Zinc Sulfate (Zinc Sulfate) 220 Mg Cap 220 MG PO DAILY, CAP Discontinued Medications: Amiloride Hcl (Amiloride Hcl) 5 Mg Tab 20 MG PO BID take four 5mg tablets Lactulose (Encephalopathy) (Lactulose) 10 Gm/15 Ml Dori 1 TBS PO BID Admission Information HPI (per Admitting provider): 66 yo M with HCV cirrhosis presents after a fall at home where he was laying on the floor for 6 hours in pain. There was no reported loss of consciousness, and the patient states that he could move, but the pain was so bad that he just laid there. His sister finally came by to check on him and found him there. He appears encephalopathic although he is A&O x 3. He is lethargic-appearing and has a history of high ammonia levels in the past. He complains of mental fog. He is compliant with lactulose and has 2-3 BMs daily. Earlier today he was in the ER for a bursitis/cellulitis of the L elbow. He cannot tell me for how long it was there, but there is a well-healed scab present over some redness on the olecranon process so this appears to be subacute with some more acute red streaking down the dorsal side of his forearm. He has pain from this. For this infection he was given doxycycline PO and sent home. He had only received one dose of this in the ER prior to the fall. He also had been given some Ativan 1mg in the ER, which may be contributing to his mental fog, additionally. Lastly he is very clinically dehydrated with severe dehydration and scaling in the roof of his mouth and dry lips and mucous membranes. He denies any recent weight gain and states that his LAsix was just cut back to two pills BID. He does live alone and his sister is here with him in the ER. He states that there has saira discussion about placing him in assisted living recently and he is concerned that this will require him to give up all his possessions. He would like to discuss this further with Case Management. ROS reveals no chest pain, but he did have total body pain spontaneously one week ago, and he cannot elaborate more on this. He denies SOB, abdominal pain, weight gain, bleeding or bruising, cough fevers or chills. Physical Exam (per Admitting): GEN: WNWD, in no acute distress, can answer questions appropriately and is A&O x 3 but is lethargic and slow to respond. HEENT: NC/AT, PERRL, mildly jaundiced sclerae CARDIO: reg rate, S1/2 heard without m/g/r LUNGS: CTA bilaterally, no crackles, rales or wheezes, good diaphragmatic excursion ABD: soft, non-tender, non-distended, no rebound or guarding, +BS EXTREMITY: significant changes of skin associated with long-term swelling and edema-woody appearance to skin with dusky hue from erythroderma. NEURO: CN 2-12 intact, sensation intact throughout, no asterixis, no gross focal deficits MUSC: 5/5 strength throughout, no focal deficits SKIN: warm and dry and LE skin changes as above. Hospital Course 66 year old male with history of Cirrhosis, Ascites, Hep C presenting with fall. Encephalopathy, Resolved - Etiologies include dehydration, hepatic encephalopathy,hypernatremia - ammonia 66 on admission, Na 147 - GI consulted - Lactulose increased, Rifaximin continued Lasix and Amiloride held - improved, back to baseline - discharge plan: increase Lactulose to 20gm QID (goal: 3-4 BM/day) continue Rifaximin decrease Lasix to 40mg BID hold Amiloride - d/c home with home health and PT patient declines inpatient Rehab monitor Right Sided Rib fractures: Due to fall. CXR: 1. Right 10th and 11th rib fractures. No evidence of pneumothorax. 2. Basilar interstitial thickening, slightly progressive when compared the prior 2016 study. No pneumothorax on Chest X-Ray. . - continue incentive spirometry Left Elbow Bursitis improving continue Doxycycline PO Doppler US negative for DVT Elevated Troponin: Likely Troponin leak. -Troponin trend is 0.07 --> 0.04. - Echo: The left ventricle is normal in size. * There is normal left ventricular wall thickness. * The left ventricular wall motion is normal. * Ejection Fraction = 60-65%. * There is trace mitral regurgitation. * There is trace tricuspid regurgitation. * There is no pericardial effusion. - no Cardiac symptoms Hypernatremia Due to dehydration 148 improved to 144 Lasix lowered to 40mg BID Amiloride held monitor as outpatient Cirrhosis presented with dehydration discharge plan: Lasix lowered to 40mg BID hold Amiloride held increase Lactulose to 20gm QID continue Rifaximin ff up with GI as outpatient Thrombocytopenia Plt 100 around baseline likely due to liver cirrhosis DVT Prophylaxis: SCDs given Disposition: patient would prefer to go home with home health and PT ff up with PCP in 1 week ff up with GI as scheduled Total time spent on discharge = 40 MINUTES This includes examination of the patient, discharge planning, medication reconciliation, and communication with other providers. Discharge Instructions Discharge Instructions Date of Service Jun 08, 2016. Admission Reason for Admission: Encephalopathy, Unspecified Discharge Discharge Diagnosis / Problem: Encephalopathy Discharge Goals Goal(s): Diagnostic testing, Therapeutic intervention Activity Recommendations Activity Limitations: as noted below (no heavy exertion until re-evaluated by Primary Care Physician) Driving or Machine Use: NO driving until re-evaluated by Primary Care Physician . Instructions / Follow-Up Instructions / Follow-Up PLEASE REVIEW YOUR NEW MEDICATION LIST AND FOLLOW INSTRUCTIONS CAREFULLY. RESUME AMILORIDE IF WITH INCREASING LEG OR ABDOMINAL SWELLING. THEN CALL DR. KABA OR DR. LY IMMEDIATELY. CALL PRIMARY CARE PHYSICIAN OR RETURN TO ER IMMEDIATELY IF WITH RECURRENCE OF SYMPTOMS, INCREASING LEG/ARM SWELLING, SHORTNESS OF BREATH, WEAKNESS, FEVER/CHILLS. USE INCENTIVE SPIROMETRY EVERY DAY. FOLLOW UP WITH DR. KABA ON Monday06/13/16 AT 11:05AM. FOLLOW UP WITH REPAIR WEAVER DR. LY SCHEDULED. Current Hospital Diet Patient's current hospital diet: Low Sodium Diet (2gm Na) Discharge Diet Recommended Diet: Low Sodium Diet (2gm Na) Fluid Restriction: 1500 ml (6 cups) Pending Studies Studies pending at discharge: yes List of pending studies: REPEAT BLOOD WORK: PARTIAL RENAL PROFILE Medical Emergencies . Who to Call and When: Medical Emergencies: If at any time you feel your situation is an emergency, please call 911 immediately. . Non-Emergent Contact Non-Emergency issues call your: Primary Care Provider Call Non-Emergent contact if: you have a fever, your pain is not controlled, wound has increased drainage, wound has increased redness, wound has increased pain, you have any medication questions . Past History Medical & Surgical History: (1) Anemia (2) Chronic hepatitis C (3) Cirrhosis of liver (4) Esophageal varices (5) Hernia repair (6) History of - schizophrenia (7) Hjadj-Rlmatewvr-Vgfqk pattern (8) Hyponatremia (9) Back pain (10) Generalized weakness (11) Hyponatremia (12) Hyperkalemia (13) Generalized weakness (14) Confusion (15) Acute renal failure (16) Depressed affect (17) Increased ammonia level (18) Hepatic encephalopathy (19) Cellulitis of left forearm (20) ENCEPHALOPATHY, UNSPECIFIED (21) Rib fractures (22) Falls (23) Elevated troponin I level . "Provider Documentation" section prepared by Arnol Hoover. VTE Core Measure Inpt VTE Proph given/why not?: SCD's, Contraindicated
[2016-06-08 16:27] VITALS: BP 132/67; PULSE 68; TEMP 36.7; O2SAT 94
== END 2016-06-08 16:45 | disposition home health service (06) | DRG 183 ==
LOC: ENRESERVTM → ENRESERVDT → EDBD 15:27 → C.EDC 15:28 → C.2T 19:55 → C.MSN 06-06 16:59
PROVIDERS: ADMIT Hospitalist; ATTEND Internal Medicine
DX: S22.41XA Multiple fractures of ribs, right side, initial encounter for closed fracture (principal); G93.40 Encephalopathy, unspecified; E87.0 Hyperosmolality and hypernatremia; I85.00 Esophageal varices without bleeding; K72.90 Hepatic failure, unspecified without coma; E86.0 Dehydration; K74.60 Unspecified cirrhosis of liver; F32.9 Major depressive disorder, single episode, unspecified; D64.9 Anemia, unspecified; D69.6 Thrombocytopenia, unspecified; E78.5 Hyperlipidemia, unspecified; I45.6 Pre-excitation syndrome; G25.81 Restless legs syndrome; Z87.891 Personal history of nicotine dependence; F20.9 Schizophrenia, unspecified; W19.XXXA Unspecified fall, initial encounter; L03.114 Cellulitis of left upper limb; B19.20 Unspecified viral hepatitis C without hepatic coma; Z86.19 Personal history of other infectious and parasitic diseases; Z79.899 Other long term (current) drug therapy; Z88.8 Allergy status to other drugs, medicaments and biological substances; Z80.9 Family history of malignant neoplasm, unspecified; Z82.49 Family history of ischemic heart disease and other diseases of the circulatory system; Z82.0 Family history of epilepsy and other diseases of the nervous system